=== PATIENT | female | born 1985 | race Caucasian/White ===

== ENCOUNTER 2016-07-13 02:08 | Emergency (ER) | payer OTHER ==
[~2016-07-13] VITALS: Ht 152.4 cm; Wt 48.2 kg
[~2016-07-13 02:08] MED LIST: ALPR0.25 PO; CALC0.2510 PO; CALCTAB7 PO; LEVOIUD PV; MULT-506 PO; OMEP20CA9 PO; SERT1TAB72 PO; SULF800T23 PO; SYN75 PO; TRET1CRE34
[2016-07-13 02:17] VITALS: TEMP 36.7; Ht 152.4 cm; Wt 48.2 kg
[2016-07-13] MEDS ORDERED: XYLOCAINE 1%/SOD BICARB 20 ML VIAL INFIL ONE ×2 (02:35→02:45)
[2016-07-13 03:06] LABS: BASO % 0.2 %; BASO ABS # 0.01 K/uL (0-0.2); COMPLETE YES; HEMATOCRIT 40.7 % (37-47); LYMPH % 45.3 %; LYMPH ABS # 2.17 K/uL (1.2-3.4); MEAN CELL VOLUME 91.9 fL (80-100); MEAN CORPUSCULAR HEMOGLOBIN 31.6 pg (25-34); MEAN CORPUSCULAR HGB CONC 34.4 g/dl (32-36); MONO % 10.6 %; NEUT % 42.9 %; PLATELET COUNT 287 K/uL (130-400); RED BLOOD COUNT 4.43 M/uL (4.2-5.4); WHITE BLOOD COUNT 4.79 K/uL (4.8-10.8)
[2016-07-13] MEDS ORDERED: ASPI81TA28 PO (03:20)
[2016-07-13] MEDS ORDERED: LEVO137T3 PO (03:20)
[2016-07-13 03:25] LABS: ALT/SGPT 22 U/L (12-78); AST/SGOT 15 U/L (15-37); BLOOD UREA NITROGEN 6 mg/dl (7-18); BUN/CREATININE RATIO 7.3 (10-20); CALCIUM 8.2 mg/dl (8.5-10.1); CARBON DIOXIDE 24 mmol/L (21-32); CHLORIDE 112 mmol/L (98-107); CREATININE 0.81 mg/dl (0.60-1.20); GLUCOSE 80 mg/dl (70-99); POTASSIUM 3.9 mmol/L (3.5-5.1); SODIUM 146 mmol/L (136-145)
[2016-07-13 03:30] LABS: URINE APPEARANCE CLOUDY (CLEAR); URINE BILIRUBIN NEG (NEG); URINE COLOR YELLOW; URINE NITRITE NEG (NEG); URINE PH 7.5 (4.5-7.5); UROBILINOGEN NEG (NEG)
[2016-07-13 03:34] LABS: MANUAL MICROSCOPIC REQUIRED? NO; REVIEW REQ? NO
[2016-07-13 03:36] LABS: ALB/GLOB RATIO 1.2 (0.9-2); ALKALINE PHOSPHATASE 43 U/L (45-117)
[2016-07-13 03:39] LABS: PREG INTERNAL NEGATIVE QC NEG CLEAR BACKGROUND; PREG INTERNAL POSITIVE QC POS CONTROL LINE
[2016-07-13 03:45] LABS: BENZODIAZEPINE, URINE NEG (NEG); COCAINE,URINE NEG (NEG); PHENCYCLIDINE, URINE NEG (NEG)
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
[2016-07-13 10:41] VITALS: BP 147/88; PULSE 95; O2SAT 97
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
== END 2016-07-13 10:43 | disposition home or self-care (01) ==
LOC: C.EDB 02:08 → EDBD 02:08 → C.EDA 10:43
DX: S71.111A Laceration without foreign body, right thigh, initial encounter (principal); S81.812A Laceration without foreign body, left lower leg, initial encounter; X78.1XXA Intentional self-harm by knife, initial encounter; E07.9 Disorder of thyroid, unspecified; K21.9 Gastro-esophageal reflux disease without esophagitis; F32.9 Major depressive disorder, single episode, unspecified; Z79.82 Long term (current) use of aspirin; Z79.899 Other long term (current) drug therapy

== ENCOUNTER → 2016-10-18 | Outpatient (CLI) | payer OTHER ==
[~2016-10-18] MED LIST changes: -ALPR0.25 PO; +ASPI81TA28 PO; -CALC0.2510 PO; -CALCTAB7 PO; +LEVO137T3 PO; -LEVOIUD PV; -MULT-506 PO; -OMEP20CA9 PO; -SERT1TAB72 PO; -SULF800T23 PO; -SYN75 PO; -TRET1CRE34
[2016-10-18 14:44] LABS: BASO % 0.2 %; BASO ABS # 0.01 K/uL (0-0.2); COMPLETE YES; EOS % 0.5 %; HEMATOCRIT 36.4 % (37-47); LYMPH % 20.6 %; LYMPH ABS # 1.19 K/uL (1.2-3.4); MEAN CELL VOLUME 91.9 fL (80-100); MEAN CORPUSCULAR HEMOGLOBIN 31.1 pg (25-34); MEAN CORPUSCULAR HGB CONC 33.8 g/dl (32-36); MEAN PLATELET VOLUME 10.5 fL (7.4-10.4); MONO % 8.8 %; NEUT % 69.9 %; PLATELET COUNT 279 K/uL (130-400); RED BLOOD COUNT 3.96 M/uL (4.2-5.4); WHITE BLOOD COUNT 5.79 K/uL (4.8-10.8)
[2016-10-18 15:17] LABS: THYROID STIMULATING HORMONE 1.12 uIu/ml (0.300-4.500)
[2016-10-18 15:41] LABS: URINE APPEARANCE CLOUDY (CLEAR); URINE BILIRUBIN NEG (NEG); URINE COLOR YELLOW; URINE EPITHELIAL CELL AUTO >30 /lpf (0-5); URINE NITRITE NEG (NEG); URINE PH 8.5 (4.5-7.5); URINE SPECIFIC GRAVITY 1.019 (1.000-1.030); UROBILINOGEN NEG (NEG)
[2016-10-18 15:46] LABS: MANUAL MICROSCOPIC REQUIRED? NO; REVIEW REQ? NO
[2016-10-21 01:09] LABS: CHLAMYDIA TRACH RNA*** NOT DETECTED (NOT DETECTED); GC (NEIS GONORRHOEAE)RNA** NOT DETECTED (NOT DETECTED)
== END | disposition home or self-care (01) ==
LOC: C.LAB1850 12:43
PROVIDERS: ATTEND Obstetrics & Gynecology
DX: O09.299 Supervision of pregnancy with other poor reproductive or obstetric history, unspecified trimester (principal); E06.3 Autoimmune thyroiditis; Z3A.00 Weeks of gestation of pregnancy not specified

== ENCOUNTER → 2016-11-15 | Outpatient (CLI) | payer OTHER ==
[2016-11-15 17:58] LABS: THYROID STIMULATING HORMONE 7.47 uIu/ml (0.300-4.500)
== END | disposition home or self-care (01) ==
LOC: C.LAB1850 16:35
PROVIDERS: ATTEND Obstetrics & Gynecology
DX: O09.91 Supervision of high risk pregnancy, unspecified, first trimester (principal)

== ENCOUNTER → 2016-12-11 | Outpatient (CLI) | payer OTHER ==
[2016-12-11 18:31] LABS: THYROID STIMULATING HORMONE 1.64 uIu/ml (0.300-4.500)
[2016-12-13 16:56] LABS: AFP CONCENTRATION 43.9 NG/ML; AFP MULTIPLE OF MEDIAN 1.11; AFPTS GESTATIONAL AGE 16.1 WEEKS; AFPTS INSULIN DEP DIABETIC? NO; AFPTS MATERNAL WT 116 LBS; ALPHA-FETOPROTEIN RACE CAUCASIAN=W; HISTORY OF NTD YES; REPEAT SAMPLE? NO
== END | disposition home or self-care (01) ==
LOC: C.LAB1850 17:00
PROVIDERS: ATTEND Obstetrics & Gynecology
DX: O09.91 Supervision of high risk pregnancy, unspecified, first trimester (principal); Z3A.00 Weeks of gestation of pregnancy not specified

== ENCOUNTER → 2016-12-13 | Outpatient (CLI) | payer OTHER ==
[2016-12-13 17:44] LABS: GTGD 50 Grams
== END | disposition home or self-care (01) ==
LOC: C.LAB1850 16:40
PROVIDERS: ATTEND Obstetrics & Gynecology
DX: Z34.82 Encounter for supervision of other normal pregnancy, second trimester (principal)

== ENCOUNTER → 2017-03-08 | Outpatient (CLI) | payer OTHER ==
[2017-03-08 18:16] LABS: URINE APPEARANCE CLEAR (CLEAR); URINE BILIRUBIN NEG (NEG); URINE COLOR YELLOW; URINE NITRITE NEG (NEG); URINE PH 8.5 (4.5-7.5); URINE SPECIFIC GRAVITY 1.011 (1.000-1.030); UROBILINOGEN NEG (NEG)
[2017-03-08 18:20] LABS: MANUAL MICROSCOPIC REQUIRED? NO; REVIEW REQ? NO
== END | disposition home or self-care (01) ==
LOC: C.LABSPEC 17:26
PROVIDERS: ATTEND Obstetrics & Gynecology
DX: Z34.83 Encounter for supervision of other normal pregnancy, third trimester (principal)

== ENCOUNTER → 2017-04-09 | Outpatient (CLI) | payer OTHER | END | disposition home or self-care (01) | LOC: C.LAB1850 08:40 | PROVIDERS: ATTEND Obstetrics & Gynecology | DX: O28.1 Abnormal biochemical finding on antenatal screening of mother (principal); Z3A.00 Weeks of gestation of pregnancy not specified ==

== ENCOUNTER → 2017-05-07 | Outpatient (CLI) | payer OTHER | END | disposition home or self-care (01) | LOC: C.LABSPEC 16:07 | PROVIDERS: ATTEND Obstetrics & Gynecology | DX: Z34.83 Encounter for supervision of other normal pregnancy, third trimester (principal) ==

== ENCOUNTER → 2017-05-07 | Outpatient (CLI) | payer BC | END | disposition home or self-care (01) | LOC: C.LAB1850 15:09 | PROVIDERS: ATTEND Obstetrics & Gynecology | DX: E06.3 Autoimmune thyroiditis (principal); O99.280 Endocrine, nutritional and metabolic diseases complicating pregnancy, unspecified trimester ==

== ENCOUNTER → 2017-05-10 | Outpatient (CLI) | payer OTHER | END | disposition home or self-care (01) | LOC: C.LAB1850 13:33 | PROVIDERS: ATTEND Internal Medicine | DX: E06.3 Autoimmune thyroiditis (principal) ==

== ENCOUNTER 2017-05-31 02:53 | Inpatient (IN) | payer BC ==
[~2017-05-31] VITALS: Ht 154.9 cm; Wt 60.0 kg
[2017-05-31] MEDS ORDERED: LACTATED RINGER'S 1000ML 1,000 ML IV SCH ×2 (05:09→10:58)
[2017-05-31] MEDS ORDERED: LACTATED RINGER'S 1000ML 1,000 ML IV PRN (05:09)
[2017-05-31] MEDS ORDERED: EpHEDrine SULFATE INJ 50 MG/ML AMP ONE (05:29)
[2017-05-31] MEDS ORDERED: BUPIVACAINE 0.25% 30 ML VIAL ONE (05:29)
[2017-05-31] MEDS ORDERED: FENTANYL 2MCG/ML ROPIV 1.25MG/ML 100ML BAG EPI ONE (05:30)
[2017-05-31] MEDS ORDERED: FENTANYL CITRATE INJ 50 MCG/1 ML 2 ML VIAL ONE (05:31)
[2017-05-31 05:40] VITALS: Ht 154.9 cm; Wt 60.0 kg
[2017-05-31] MEDS ORDERED: ONDANSETRON INJ 2 MG/ML 2 ML VIAL IV STA (05:47)
[2017-05-31] MEDS ORDERED: ONDANSETRON INJ 2 MG/ML 2 ML VIAL ONE (05:48)
[2017-05-31 05:53] LABS: HEMATOCRIT 37.6 % (37-47); HEMOGLOBIN 12.8 g/dL (12.0-16.0); MEAN CELL VOLUME 93.1 fL (80-100); MEAN CORPUSCULAR HEMOGLOBIN 31.7 pg (25-34); MEAN PLATELET VOLUME 10.1 fL (7.4-10.4); PLATELET COUNT 149 K/uL (130-400); RED CELL DISTRIBUTION WIDTH CV 13.2 % (11.5-14.5); RED CELL DISTRIBUTION WIDTH SD 44.9 fL (36.4-46.3); WHITE BLOOD COUNT 8.03 K/uL (4.8-10.8)
[2017-05-31] MEDS ORDERED: BUTORPHANOL TARTRATE 1 MG/ML VIAL ONE (06:04)
[2017-05-31] MEDS ORDERED: BUTORPHANOL TARTRATE 1 MG/ML VIAL IV ONE (06:15)
[2017-05-31] MEDS ORDERED: SYN200 (06:23)
[2017-05-31] MEDS ORDERED: PRENTAB26 PO (06:24)
[2017-05-31] MEDS ORDERED: LACTATED RINGER'S 1000ML 500 ML IV PRN ×2 (06:56→10:05)
[2017-05-31] MEDS ORDERED: NALOXONE HCL INJ 1 MG in SODIUM CHLORIDE 0.9% 1000ML 1,000 ML IV PRN ×2 (06:56→10:05)
[2017-05-31] MEDS ORDERED: ONDANSETRON INJ 2 MG/ML 2 ML VIAL IV PRN ×2 (07:00→10:15)
[2017-05-31] MEDS ORDERED: EpHEDrine SULFATE INJ 50 MG/ML AMP IV PRN ×2 (07:00→10:15)
[2017-05-31] MEDS ORDERED: NALBUPHINE HCL INJ 10 MG/ML AMP IV PRN ×2 (07:00→10:15)
[2017-05-31] MEDS ORDERED: DiphenhydrAMINE HCL 50 MG/ML VIAL IV PRN ×2 (07:00→10:15)
[2017-05-31] MEDS ORDERED: NALOXONE HCL INJ 0.4 MG/1 ML VIAL/CARP IV PRN ×2 (07:00→10:15)
[2017-05-31] MEDS ORDERED: FENTANYL 2MCG/ML ROPIV 1.25MG/ML 100ML BAG EPI PRN ×2 (07:00→10:15)
[2017-05-31] MEDS ORDERED: OXYTOCIN 30 UNITS/500ML NSS IV ONE (10:49)
[2017-05-31] MEDS ORDERED: SUPERCREAM 0.870 % 15GM JAR EXT PRN (11:00)
[2017-05-31] MEDS ORDERED: HYDROCORTISONE ACETATE 25 MG SUPP PR PRN (11:00)
[2017-05-31] MEDS ORDERED: ACETAMINOPHEN 325 MG TAB PO PRN (11:00)
[2017-05-31] MEDS ORDERED: IBUPROFEN 600 MG TAB PO PRN (11:00)
[2017-05-31] MEDS ORDERED: OXYCODONE/ACETAMINOPHEN 5-325 TAB PO PRN (11:00)
[2017-05-31] MEDS ORDERED: LANOLIN OINT EXT PRN (11:00)
[2017-05-31] MEDS ORDERED: OXYTOCIN 30 UNITS/500ML NSS IV PRN (11:00)
[2017-05-31] MEDS ORDERED: BENZOCAINE 20% AER SPR 82.5 GM CAN EXT PRN (11:00)
[2017-05-31] MEDS ORDERED: DIPHTHERIA/TETANUS/PERTUSSIS 0.5 ML SYR/VIAL IM. ONE (11:00)
--- NOTE | 2017-05-31 12:42 | Anesthesia Procedure Note ---
Anesthesia Epidural Removal Nt Date & Time May 31, 2017 at 12:42 Vital Signs Pain Intensity: 1.0 Notes Mental Status: alert / awake / arousable, participated in evaluation Nausea / Vomiting: adequately controlled Pain: adequately controlled Airway Patency, RR, SpO2: stable & adequate BP & HR: stable & adequate Hydration State: stable & adequate Neuraxial Anesthesia: was administered, sensory block is resolving Anesthetic Complications: no major complications apparent, pt satisfied with anesthetic care Epidural: removed without complications, with tip intact
[2017-05-31 15:30] VITALS: BP 130/88; PULSE 79; TEMP 36.5
[2017-05-31 19:00] VITALS: BP 109/70; PULSE 75; TEMP 36.6
[2017-05-31] MEDS ORDERED: DOCUSATE SODIUM 100 MG CAP PO SCH (20:00)
--- NOTE | 2017-05-31 20:54 | DELIVERY SUMMARY ---
DATE OF OPERATION: 05/31/2017 SURGEON: Mary Rey MD BOILER ERECTOR: None. ESTIMATED BLOOD LOSS: 300 mL. SURGERY: Spontaneous vaginal delivery. COMPLICATIONS: None. DISPOSITION: Stable to labor and delivery. DESCRIPTION: Marla was admitted and initially managed by my partner Dr. Rodriguez. I took over her care at the end-stage of her labor. She was noted to be 7 to 8 cm with thick meconium at the time I assumed her care. She was progressing with spontaneous labor and no augmentation. She became completely dilated with an urge to push. The nurse had her do one test push, which brought the head nearly to , therefore, they stopped pushing until I was able to get to the bedside from down the hallway. I quickly prepped down for delivery and then through the next several pushing attempts, patient delivered the head of the in an occiput anterior position, followed by both shoulders and the remainder of the body with no difficulty whatsoever. The cord was doubly clamped after a delay per patient's wishes and then cut by the father of the baby. Cord blood was collected and the placenta delivered spontaneously and was intact for the 3-vessel cord. There was also noted to be a succenturiate lobe on the placenta. There were no lacerations requiring repair on the cervix, vagina or perineum, and lochia was minimal at the time of this dictation. I attest to the content of the Intraoperative Record and any orders documented therein. Any exception s are noted below.
[2017-06-01 00:30] VITALS: BP 110/73; PULSE 70; TEMP 36.6
[2017-06-01 04:00] VITALS: BP 112/70; PULSE 70; TEMP 36.6
--- NOTE | 2017-06-01 05:54 | Discharge Instructions ---
Discharge Instructions Date of Service Jun 01, 2017. Admission Reason for Admission: Normal Labor Discharge Discharge Diagnosis / Problem: vaginal delivery Discharge Goals Goal(s): Routine recovery after delivery Medications Continue Dispensed Medications: supercream, dermaplast, tucks, lansinoh Activity Recommendations Activity Limitations: per Instructions/Follow-up section . Instructions / Follow-Up Instructions / Follow-Up ACTIVITY RECOMMENDATIONS: * Gradual return to full activity over the next 2-3 weeks. * No lifting - nothing heavier than baby over the next 2-3 weeks. * Do not engage in vigorous exercise, sexual activity or sports until cleared by your physician. * Do not drive or operate any motorized equipment until cleared by your physician. * You may shower/bathe daily. MEDICATIONS: For discomfort or pain, you may use Acetaminophen (Tylenol), Ibuprofen (Advil), or Naproxen (Aleve) following the package directions. For constipation you may use Colace following the package directions. BREAST CARE: If you are not breast feeding: * Wear a supportive bra 24 hours a day for one to two weeks. * Avoid stimulating your breasts and nipples as much as possible during the first few weeks after delivery. * When taking a shower, have the warm water hit your back, not breasts. * When your breasts feel full, apply ice packs. Usually three to four times a day helps ease the discomfort. * Take a mild pain medication (Tylenol / Motrin) when you are uncomfortable. If breast feeding: * Use breast milk to lubricate nipples. Lansinoh cream may be used for sore nipples. You do not need to remove cream prior to breast feeding. If using a different brand of cream, check the label for directions regarding removal of cream prior to nursing. * Wear a supportive bra. * If having problems with breasts or breast feeding, call a medical cost consultant or your health care provider. EPISIOTOMY CARE: After delivery, if you have an episiotomy (stitches), the following steps will ease discomfort and aid healing. * For the first 24 hours after delivery, place ice packs next to your episiotomy to help reduce swelling. * After the first 24 hour-period, sitz baths, either portable or in the tub, are suggested. A shower with a shower arm sprayed over the episiotomy may be comforting. * Yumiko care should be done after each voiding and bowel movement. Squirt warm water from a plastic bottle over the perineum (region of the body between the anus and urinary opening) and pat dry. * Use Dermoplast to ease discomfort. Shake container. [place] directly over the episiotomy. Place a Tucks on a clean sanitary pad next to your episiotomy. SPECIAL CARE INSTRUCTIONS: When you are discharged from the hospital, it is important for you to follow the instructions listed below: * During the first week at home, you should be able to care for yourself and your baby. In addition, the usual light household activities are encouraged. * Limit your activities to the way you feel. Do not try to clean the house or move furniture. Be sensible. * If you actively engage in sports and have done so up until the time of your delivery, you may resume these activities as soon as you feel able. This may take up to one month or even longer. Use good judgment. * Continue to take your vitamins for at least six weeks after the of your baby. * Your diet need not be limited unless you were on a special diet before your delivery. Breast-feeding mothers need around 2500 calories per day and at least 64-80 ounces of fluid per day (8 to 10 glasses). * You should eat foods from the four major food groups. Crash diets or fad diets are to be avoided. Eating lean meats, fresh fruits and vegetables, low-fat dairy products, high fiber foods and a regular exercise program, will help you get back to your pre- weight without putting your health at risk. * Constipation is sometimes a problem after delivery. Take a mild laxative as needed. If breast feeding, Milk of Magnesia is acceptable to use. You may use a suppository or Fleets enema if no episiotomy. * A daily shower or tub bath is suggested. Be sure to thoroughly and gently dry the perineum. * A bloody vaginal discharge will usually continue until around four weeks post . A small amount of bleeding may continue for as long as six weeks. Vaginal discharge changes from the bright red bleeding after delivery to pink then brownish and finally yellowish-pink before becoming white and disappearing. * Bleeding may increase with activity. Your first period may come in 4-8 weeks. If you are breast feeding, your period may be delayed even longer. * Tyndall (sex) can begin whenever both you and your partner feel comfortable and do not have any form of genital infection. It is recommended that you wait at least six weeks for internal and external healing to occur. If you have questions, please talk to your health care practitioner. A condom should be used to prevent infection and . * Foreplay, gentle intercourse and lubrication is very important the first several times to prevent pain. A water-based lubricant such as K-Y jelly or Astroglide may be used. * If you have RH negative blood and your baby is RH positive, you will receive RHOGAM by injection prior to discharge. The nurse will give you a card to keep with you that has the date and place that you received RHOGAM after delivery. * During your care, you had a Rubella screen done to check for the presence of rubella antibodies in your blood. If your test was negative, you will receive a Rubella vaccine prior to discharge. This vaccine may cause a fever, soreness at the injection site and flu-like symptoms. If these symptoms persist, notify your health care practitioner. is not advised for one month after a Rubella vaccine. * Verbalizes understanding of car seat law as reviewed with patient nursing. * Car Seat hand-out given and reviewed with patient by nursing. * Shaken baby information reviewed with patient by nursing. Call you doctor if: * Heavy bleeding (saturating several pads an hour) or passing clots the size of your fist. * A fever >101 degrees F (38.3 degrees C) on two occasions four hours apart and /or chills. * Unusual pain in the pelvic or vaginal areas. * "Baby Blues" lasting longer than two weeks. If you have any questions or concerns, call your health care practitioner at . FOLLOW UP VISIT: * Please call the office at to schedule a 6 week examination. It is important you keep this appointment. It is important for you to make arrangements for either yearly or twice yearly check-ups thereafter. Current Hospital Diet Patient's current hospital diet: Regular OB Diet Discharge Diet Recommended Diet: Regular OB Diet Pending Studies Studies pending at discharge: no Medical Emergencies . Who to Call and When: Medical Emergencies: If at any time you feel your situation is an emergency, please call 911 immediately. . Non-Emergent Contact Non-Emergency issues call your: General Repair Mechanic . . "Provider Documentation" section prepared by Rigo Sanderson. . VTE Core Measure Inpt VTE Proph given/why not?: Treatment not indicated
--- NOTE | 2017-06-01 06:02 | OB/GYN Progress Note ---
TRAFFIC CONTROLLER CABLE Progress Note Date of Service Jun 01, 2017. Subjective conversation w/ patient, physical exam, chart review, lab review, review of studies Ambulation: ambulating normally Voiding: no voiding problems Passing Gas: Yes Diet Tolerance: Regular Diet Lochia: Small Feeding Type: Breast Feeding Pain: controlled with motrin Review of Systems Constitutional: No fever Respiratory: No cough, No shortness of breath Cardiac: No chest pain Abdomen: No pain, No nausea, No vomiting Female : No dysuria Objective Vital Signs Date Time Temp Pulse Resp B/P (MAP) Pulse Ox O2 Delivery O2 Flow Rate FiO2 06/01/17 04:00 36.6 70 18 112/70 (84) Room Air 06/01/17 00:30 Room Air 06/01/17 00:30 36.6 70 18 110/73 (85) Room Air 05/31/17 19:00 36.6 75 20 109/70 (83) Room Air 05/31/17 15:30 Room Air 05/31/17 15:30 36.5 79 20 130/88 (102) Room Air Physical Exam General Appearance: WELL-APPEARING, WD/WN, NO APPARENT DISTRESS Respiratory/Chest: lungs clear, normal breath sounds Cardiovascular: regular rate, rhythm Abdomen: non tender, soft Fundus: Firm, Relation to Umbilicus (two digits below ) Extremities: normal inspection, no pedal edema, no calf tenderness Laboratory Results Last 24 Hours Test 06/01/17 04:44 Assessment and Plan Post- Day Number: 1 Continue Routine Care: 32 F now 3 PPD1 delivered vaginally at 40-4 wk. GBS-/A+/RI Reviewed vitals, stable/WNL. Hgb was 12.8 on admission, pending this morning. Plan; 1. Recovery from vaginal delivery; continue pp care; encourage ambulation, support , monitor lochia 2. Discussed dc instructions with patient Resident Physician Supervision Note: I interviewed and examined the patient. Discussed with Dr. Sanderson and agree with findings and plan as documented in the note. Any exceptions or clarifications are listed here: [None] Documented By: Mary Rey
[2017-06-01] MEDS ORDERED: LEVOTHYROXINE 200 MCG TAB PO SCH (07:30)
[2017-06-01 07:35] VITALS: BP 119/84; PULSE 67; TEMP 36.5
[2017-06-01] MEDS ORDERED: PRENATAL VITAMIN TAB PO SCH (08:00)
[2017-06-01 08:40] LABS: HEMATOCRIT 36.3 % (37-47); HEMOGLOBIN 12.6 g/dL (12.0-16.0)
[2017-06-01 12:30] VITALS: BP_DIAS 84; PULSE 67; TEMP 36.5
== END 2017-06-01 13:05 | disposition home or self-care (01) | DRG 775 ==
LOC: EDSTATUS 02:53 → C.OPB 02:53 → C.LD 02:53 → C.OPB 05:11 → C.OBG 15:32
PROVIDERS: ADMIT Obstetrics & Gynecology; ATTEND Obstetrics & Gynecology
PROC: 10E0XZZ Delivery of Products of Conception, External Approach (ICD-10-PCS; principal; 2017-05-31)
DX: O99.284 Endocrine, nutritional and metabolic diseases complicating childbirth (principal); E06.3 Autoimmune thyroiditis; Z3A.40 40 weeks gestation of pregnancy; Z37.0 Single live birth

== ENCOUNTER 2017-06-28 19:08 | Emergency (ER) | payer BC, OTHER ==
[~2017-06-28] VITALS: Ht 162.6 cm; Wt 52.7 kg
[~2017-06-28 19:08] MED LIST changes: -ASPI81TA28 PO; -LEVO137T3 PO; +PRENTAB26 PO; +SYN200 PO
[2017-06-28 19:13] VITALS: Ht 162.6 cm; Wt 52.7 kg
[2017-06-28] MEDS ORDERED: ACETAMINOPHEN 500 MG TAB PO STA (19:29)
[2017-06-28] MEDS ORDERED: ONDANSETRON INJ 2 MG/ML 2 ML VIAL IV STA (19:29)
[2017-06-28] MEDS ORDERED: SODIUM CHLORIDE 0.9% 1000ML 2,000 ML IV STA (19:29)
--- NOTE | 2017-06-28 19:43 | EMERGENCY ROOM VISIT NOTE ---
History Report prepared by Curtis: Genaro Be Under the Supervision of: Dr. Maxi Ledezma M.D. First contact with patient: 19:26 Chief Complaint: FEVER Stated Complaint: FEVER, PAIN History of Present Illness The patient is a 32 year old female who presents to the Emergency Room with complaints of a persistent fever for the past 24 hours. The patient states that she has had a fever up to 102.6, chills, headache, light headedness, nausea, and has body aches. She states that her nausea is worse with standing up. The patient states that she has not been eating very well today, though she has been drinking. She denies any abdominal pain, burning with urination, diarrhea, cough, and congestion. The patient had a baby a month ago, and she has a history of hypothyroidism. She reports that she took ibuprofen three hours ago, and she has not taken any Tylenol. The patient notes that no one else is sick around he at home. She denies any history of hypertension. The patient additionally notes that she is having some redness and soreness around her right breast which started today, and it is only present on her right breast. Source of History: patient Onset: 24 hours ago Position: other (global) Symptom Intensity: 102.6 Quality: other (fever) Timing: other (persistent) Associated Symptoms: + chills, + headache, + nausea, No cough, No abdominal pain, No diarrhea Note: Associated symptoms: Light headed and body aches. Review of Systems See HPI for pertinent positives and negatives. A total of ten systems were reviewed and were otherwise negative. Past Medical & Surgical Medical Problems: (1) 40 weeks gestation of (2) Normal labor Social History Smoking Status: Never Smoker Alcohol Use: occasionally Drug Use: none Marital Status: in relationship Housing Status: lives with family Occupation Status: employed Current/Historical Medications Scheduled Cephalexin Monohydrate (Keflex), 500 MG PO QID Levothyroxine Sodium (Synthroid), 200 MG PO DAILY Multivit/Min/Iron/Fol Ac/Pren ( Vitamin), 1 TAB PO DAILY Scheduled PRN Ibuprofen (Advil), 200 MG PO TID PRN for Pain Allergies Coded Allergies: No Known Allergies (Unverified , 06/28/17) Physical Exam Vital Signs Date Time Temp Pulse Resp B/P (MAP) Pulse Ox O2 Delivery O2 Flow Rate FiO2 06/28/17 22:23 104 16 103/62 99 Room Air 06/28/17 21:11 37.0 114 16 101/59 97 Room Air 06/28/17 19:13 36.7 136 18 111/72 97 Room Air Physical Exam GENERAL: Fatigued appearing, no distress. HENT: Normocephalic, atraumatic. Dry mucous membranes. Oropharynx unremarkable. EYES: Normal conjunctiva. Sclera non-icteric. NECK: Supple. No nuchal rigidity. FROM. No JVD. RESPIRATORY: Clear to auscultation. CARDIAC: Regular rate, normal rhythm. Extremities warm and well perfused. Pulses equal. ABDOMEN: Soft, non-distended. No tenderness to palpation. No rebound or guarding. No masses. RECTAL: Deferred. MUSCULOSKELETAL: Mild erythema and warmth to superior portion of the right breast with mild tenderness. The back is symmetrical on inspection without obvious abnormality. There is no CVA tenderness to palpation. No joint edema. LOWER EXTREMITIES: Calves are equal size bilaterally and non-tender. No edema. No discoloration. NEURO: Normal sensorium. No sensory or motor deficits noted. SKIN: No rash or jaundice noted. Medical Decision & Procedures Laboratory Results 06/28/17 19:50 Red Blood Count 4.32, Mean Corpuscular Volume 90.0, Mean Corpuscular Hemoglobin 32.2, Mean Corpuscular Hemoglobin Concent 35.7, Mean Platelet Volume 10.0, Neutrophils (%) (Auto) 90.8, Lymphocytes (%) (Auto) 5.9, Monocytes (%) (Auto) 2.9, Eosinophils (%) (Auto) 0.0, Basophils (%) (Auto) 0.1, Neutrophils # (Auto) 15.10, Lymphocytes # (Auto) 0.98, Monocytes # (Auto) 0.49, Eosinophils # (Auto) 0.00, Basophils # (Auto) 0.01 06/28/17 19:50 Test 06/28/17 19:50 06/28/17 19:56 White Blood Count 16.63 K/uL (4.8-10.8) Red Blood Count 4.32 M/uL (4.2-5.4) Hemoglobin 13.9 g/dL (12.0-16.0) Hematocrit 38.9 % (37-47) Mean Corpuscular Volume 90.0 fL (80-100) Mean Corpuscular Hemoglobin 32.2 pg (25-34) Mean Corpuscular Hemoglobin Concent 35.7 g/dl (32-36) Platelet Count 154 K/uL (130-400) Mean Platelet Volume 10.0 fL (7.4-10.4) Neutrophils (%) (Auto) 90.8 % Lymphocytes (%) (Auto) 5.9 % Monocytes (%) (Auto) 2.9 % Eosinophils (%) (Auto) 0.0 % Basophils (%) (Auto) 0.1 % Neutrophils # (Auto) 15.10 K/uL (1.4-6.5) Lymphocytes # (Auto) 0.98 K/uL (1.2-3.4) Monocytes # (Auto) 0.49 K/uL (0.11-0.59) Eosinophils # (Auto) 0.00 K/uL (0-0.5) Basophils # (Auto) 0.01 K/uL (0-0.2) RDW Standard Deviation 38.5 fL (36.4-46.3) RDW Coefficient of Variation 11.7 % (11.5-14.5) Immature Granulocyte % (Auto) 0.3 % Immature Granulocyte # (Auto) 0.05 K/uL (0.00-0.02) Toxic Vacuolation OCCASIONAL Dohle Bodies OCCASIONAL Red Blood Cell Morphology Unremarkable Anion Gap 10.0 mmol/L (3-11) Est Creatinine Clear Calc Drug Dose 73.6 ml/min Estimated GFR () 95.6 Estimated GFR (Non- 82.5 BUN/Creatinine Ratio 13.5 (10-20) Calcium Level 9.0 mg/dl (8.5-10.1) Total Bilirubin 0.6 mg/dl (0.2-1) Direct Bilirubin 0.1 mg/dl (0-0.2) Aspartate Amino Transf (AST/SGOT) 18 U/L (15-37) Alanine Aminotransferase (ALT/SGPT) 33 U/L (12-78) Alkaline Phosphatase 64 U/L (45-117) Total Protein 8.2 gm/dl (6.4-8.2) Albumin 3.8 gm/dl (3.4-5.0) Lipase 208 U/L (73-393) Urine Color YELLOW Urine Appearance CLOUDY (CLEAR) Urine pH 5.5 (4.5-7.5) Urine Specific [place] 1.032 (1.000-1.030) Urine Protein 2+ (NEG) Urine Glucose (UA) NEG (NEG) Urine Ketones 4+ (NEG) Urine Occult Blood 3+ (NEG) Urine Nitrite NEG (NEG) Urine Bilirubin NEG (NEG) Urine Urobilinogen NEG (NEG) Urine Leukocyte Esterase SMALL (NEG) Urine WBC (Auto) >30 /hpf (0-5) Urine RBC (Auto) 10-30 /hpf (0-4) Urine Hyaline Casts (Auto) 1-5 /lpf (0-5) Urine Epithelial Cells (Auto) >30 /lpf (0-5) Urine Bacteria (Auto) NEG (NEG) Urine Renal Epithelial Cells /lpf (0-5) Urine Pathogenic Casts /lpf (0) Urine Mucus PRESENT (NONE PRSENT) Influenza Type A Antigen Neg for Influ A (NEG) Influenza Type B Antigen Neg for Influ B (NEG) Date/Time Source Procedure Growth Status 06/28/17 19:56 Urine , Clean Catch Urine Culture - Final THREE TYPES OF ORGANSIMS PRESENT, ALL... Complete Laboratory results reviewed by me Medications Administered Medications (Trade) Dose Ordered Sig/Charlie Route Start Time Stop Time Status Last Admin Dose Admin Sodium Chloride 2,000 ml @ 999 mls/hr Q2H1M STAT IV 06/28/17 19:29 06/28/17 21:29 DC 06/28/17 19:50 999 MLS/HR Ondansetron HCl (Zofran Inj) 4 mg NOW STAT IV 06/28/17 19:29 06/28/17 19:37 DC 06/28/17 19:50 4 MG Acetaminophen (Tylenol Tab) 1,000 mg NOW STAT PO 06/28/17 19:29 06/28/17 19:37 DC 06/28/17 19:50 1,000 MG Cephalexin Monohydrate (Keflex Cap) 500 mg NOW ONCE PO 06/28/17 21:45 06/28/17 21:46 DC 06/28/17 21:54 500 MG ED Course 1925: The patient was evaluated in room B2. A complete history and physical exam was performed. 2149: I reevaluated the patient. Discussed results and discharge instructions: she verbalized understanding and agreement. The patient is ready for discharge. Medical Decision I reviewed the patient's past medical history, medications, and the nursing notes as described above. Differential diagnoses include: mastitis, viral syndrome, influenza, dehydration , electrolyte abnormality. The patient is a 32-year-old woman who is 4 weeks after a normal and delivery presents emergency Department with feverishness, chills, body aches, nausea per hpi. On arrival the patient is no acute distress, afebrile with heart rate 130s but vital signs otherwise stable. Appears clinically dry. Exam the patient has mild erythema and warmth to the superior portion of the right breast. No induration or fluctuance to suggest abscess. WBC 16. UA is dirty however given the patient's symptoms we'll treat with Keflex for UTI which will also cover the patient's mastitis. Flu negative. Patient feeling improved after IV fluids. Heart rate improved to 100s. Findings and plan for follow-up reviewed with patient. Patient agreeable and d/c 'd per discharge instructions. Medication Reconcilliation Current Medication List: was personally reviewed by me Blood Pressure Screening Patient's blood pressure: Normal blood pressure Impression Primary Impression: Urinary tract infection Additional Impression: Mastitis Scribe Attestation The scribe's documentation has been prepared under my direction and personally reviewed by me in its entirety. I confirm that the note above accurately reflects all work, treatment, procedures, and medical decision making performed by me. Departure Information Dispostion Home / Self-Care Prescriptions Cephalexin Monohydrate (Keflex) 500 Mg Cap 500 MG PO QID for 7 Days, #28 CAP Prov: Maxi Ledezma M.D. 06/28/17 Referrals Pedrito Anderson M.D. (PCP) Forms HOME CARE DOCUMENTATION FORM, IMPORTANT VISIT INFORMATION Patient Instructions ED Infec Skin Cellulitis, ED UTI Cystitis Female, My [facility] Additional Instructions Please follow up with your primary care physician in the next 1-3 days for re- evaluation. Your symptoms are likely due to mastitis and a urinary tract infection. Otherwise, your exam and lab results did not show signs of an emergent condition at this time. Acetaminophen or ibuprofen for pain and fevers as needed. Keflex as directed for UTI and mastitis. Drink plenty of fluids to ensure hydration. For mastitis to reduce pain and swelling (Acetaminophen or ibuprofen and cold compresses) and complete emptying of the breast (via ongoing , pumping, and/or hand expression). Return to the emergency department for worsening symptoms as described in the accompanying instructions. Problem Qualifiers
[2017-06-28 20:00] LABS: HEMATOCRIT 38.9 % (37-47); HEMOGLOBIN 13.9 g/dL (12.0-16.0); MEAN CORPUSCULAR HEMOGLOBIN 32.2 pg (25-34); MEAN CORPUSCULAR HGB CONC 35.7 g/dl (32-36); PLATELET COUNT 154 K/uL (130-400); RED CELL DISTRIBUTION WIDTH CV 11.7 % (11.5-14.5); RED CELL DISTRIBUTION WIDTH SD 38.5 fL (36.4-46.3); WHITE BLOOD COUNT 16.63 K/uL (4.8-10.8)
[2017-06-28 20:19] LABS: ALBUMIN 3.8 gm/dl (3.4-5.0); CREATININE 0.93 mg/dl (0.60-1.20); POTASSIUM 3.7 mmol/L (3.5-5.1)
[2017-06-28] MEDS ORDERED: IBUP-1050 PO (20:19)
[2017-06-28 20:22] LABS: TOTAL PROTEIN 8.2 gm/dl (6.4-8.2)
[2017-06-28 20:37] LABS: BASO % 0.1 %; BASO ABS # 0.01 K/uL (0-0.2); IG# 0.05 K/uL (0.00-0.02); LYMPH % 5.9 %; LYMPH ABS # 0.98 K/uL (1.2-3.4); MONO % 2.9 %; MONO ABS # 0.49 K/uL (0.11-0.59); NEUT % 90.8 %
[2017-06-28 20:45] LABS: INFLUENZA B ANTIGEN Neg for Influ B (NEG)
[2017-06-28 21:11] VITALS: TEMP 37
[2017-06-28] MEDS ORDERED: SODIUM CHLORIDE 0.9% 1000ML 1,000 ML IV STA (21:37)
[2017-06-28] MEDS ORDERED: CEPHALEXIN MONOHYDRATE 250 MG CAP PO ONE (21:45)
[2017-06-28] MEDS ORDERED: CEPH500C PO (22:11)
[2017-06-28 22:23] VITALS: BP 103/62; PULSE 104; O2SAT 99
== END 2017-06-28 22:25 | disposition home or self-care (01) ==
LOC: C.EDB 19:09
DX: O86.20 Urinary tract infection following delivery, unspecified (principal); O99.285 Endocrine, nutritional and metabolic diseases complicating the puerperium; O91.22 Nonpurulent mastitis associated with the puerperium; E03.9 Hypothyroidism, unspecified

== ENCOUNTER 2018-12-31 23:13 | Inpatient (IN) ==
[2018-12-31] MEDS ORDERED: LACTATED RINGER'S 1,000 ML IV PRN (23:26)
[2018-12-31 23:57] LABS: Hematocrit (blood only) 32.8 % (37-47); Mean Corpuscular Volume 87.5 fL (80-100); Mean Platelet Volume 10.6 fL (7.4-10.4); Platelet Count 181 K/uL (130-400); RDW Coefficient of Variation 13.1 % (11.5-14.5); RDW Standard Deviation 42.4 fL (36.4-46.3); Red Blood Count 3.75 M/uL (4.2-5.4); White Blood Count 7.21 K/uL (4.8-10.8)
[2018-12-31 23:58] LABS: Mean Corpuscular Hgb Conc 33.5 g/dL (32-36)
[2019-01-01] MEDS: OXYTOCIN 30 UNITS/500 ML BAG IV PRN ×2 (00:04→01:08)
[2019-01-01] MEDS ORDERED: fentaNYL citrate 100 MCG/2 ML VIAL ONE (00:10)
--- NOTE | 2019-01-01 00:29 | Delivery Summary ---
Vaginal Delivery Summary Date of Service January 01, 2019 Vaginal Delivery Summary DIAGNOSES: 1. Bloom intrauterine at 40wk gestation. 2. Spontaneous onset of labor. 3. Group B Streptococcus Neg. 4. Precipitous labor 5. Limited attendance of care appointments 6. Meconium-stained fluid. PROCEDURE: Spontaneous vaginal delivery without laceration. SURGEON: Mary Rey MD. HEALTH EDUCATION ASSISTANT: None. ESTIMATED BLOOD LOSS: 250 mL. COMPLICATIONS: None. PLACENTA: Spontaneous and intact with a 3-vessel cord. DISPOSITION: Stable to labor and delivery. DESCRIPTION: Marla was admitted with SROM for meconium stained fluid and onset of painful contractions. She was found to be 5cm on arrival, and I was advised of her request for an epidural. The patient's labor progressed very rapidly; prior to epidural being obtained, the 's head was found to be in OA position by the nurses, and I was called urgently to the delivery room. The infant's head was allowed to deliver with contraction force and no further active pushing, with the perineum protected during this time by the nurses while I gloved and gowned. The shoulders delivered easily with a maternal pushing effort. There was no nuchal cord. The shoulders and body delivered without any difficulty, and the was placed on the maternal abdomen. It was vigorous and moving all extremities, and making respiratory efforts. The cord was doubly clamped by the MD and then cut. The placenta delivered spontaneously and was noted to be intact and with a 3VC. The cervix, vagina and perineum were examined and were found to be without defect requiring repair. The fundus was firm and lochia minimal immediately after delivery.
[2019-01-01] MEDS ORDERED: ACETAMINOPHEN 325 MG TAB PO PRN (00:38)
[2019-01-01] MEDS ORDERED: IBUPROFEN 600 MG TAB PO PRN (00:38)
[2019-01-01] MEDS ORDERED: HYDROCORTISONE ACETATE 25 MG SUPP PR PRN (00:38)
[2019-01-01] MEDS ORDERED: SUPERCREAM 0.870% 15 GM JAR EXT PRN (00:38)
[2019-01-01] MEDS ORDERED: DIPHTHERIA/TETANUS/PERTUSSIS 0.5 ML SYR/VIAL IM ONE (00:38)
[2019-01-01] MEDS ORDERED: BENZOCAINE 20% AER SPR 82.5 GM CAN EXT PRN (00:38)
[2019-01-01] MEDS ORDERED: OXYCODONE/ACETAMINOPHEN 5mg/325mg TAB PO PRN (00:38)
[2019-01-01] MEDS ORDERED: IBUPROFEN 600 MG TAB PO ONE (01:01)
[2019-01-01] MEDS ORDERED: OXYTOCIN 30 UNITS/500ML NSS ONE (01:02)
[2019-01-01] MEDS: LEVOTHYROXINE SODIUM 175 MCG TABLET PO SCH (06:18)
[2019-01-01] MEDS ORDERED: fentaNYL citrate 100 MCG/2 ML VIAL IV STA (06:20)
--- NOTE | 2019-01-01 06:23 | Obstetrical Progress Note ---
Date of Service <Marilynn Gotti MD - Last Filed: 01/01/19 06:24> January 01, 2019 Assessment & Plan <Marilynn Gotti MD - Last Filed: 01/01/19 06:24> (1) Status post vaginal delivery: Marla is a 33 yo on PPD 1 on at 40 weeks gestation. - GBS -, Blood Type A+ , Rubella immune -Vitals reviewed and WNL; BP 134/86, will continue to monitor -patient is doing clinically well encourage ambulation, progress diet as tolerated, provide analgesia as needed, monitor lochia anticipated d/c 01/02 Subjective <Marilynn Gotti MD - Last Filed: 01/01/19 06:24> Ambulation: ambulating normally Voiding: no voiding problems Passing Gas:: No Diet Tolerance:: regular diet (only had one bite of sandwich since delivery) Lochia:: Moderate Feeding Type:: breast feeding Current Pain Level(1-10): 0 examined at bedside Physical Exam <Marilynn Gotti MD - Last Filed: 01/01/19 06:24> General Appearance: Alert, oriented. No acute distress. Cardiac: Regular rate and rhythm, S1 and S2 appreciated. No murmurs/rubs/gallops. Respiratory: Clear to auscultation anterior and posteriorly, no wheezes/rales/rhonchi/crackles. No accessory muscle use. Symmetrical chest rise. Abdomen: Soft, nontender, nondistended. Normoactive bowel sounds throughout. Uterus: Uterine fundus firm, palpable 2 cm below umbilicus. Lower Extremities: No lower extremity edema. No calf pain on compression. Results & Data <Marilynn Gotti MD - Last Filed: 01/01/19 06:24> Vital Signs (Past 12 Hours) Vital Signs Temp Pulse Resp BP Pulse Ox 01/01/19 02:18 57 L 18 134/86 01/01/19 02:03 63 136/82 01/01/19 01:48 71 18 135/81 01/01/19 01:33 63 143/82 H 01/01/19 01:18 70 18 145/90 H 01/01/19 01:03 64 18 138/81 01/01/19 00:48 57 L 18 143/88 H 01/01/19 00:33 74 18 149/86 H 01/01/19 00:17 81 18 142/94 H 01/01/19 00:05 66 79 L 01/01/19 00:02 64 94 01/01/19 00:00 67 97 12/31/18 23:30 108 H 18 126/96 12/31/18 23:21 36.9 C 18 12/31/18 23:20 108 H 126/96 <Mary Rey MD - Last Filed: 01/01/19 07:44> Co-Signing Physician Notes I have reviewed the resident's note and examined the patient myself, and agree with the note above. Resident Activity Tracking <Marilynn Gotti MD - Last Filed: 01/01/19 06:24> Resident Involvement: Resident Care Provided Care Provided: Adult Hospital Medicine
[2019-01-01] MEDS: DOCUSATE SODIUM 100 MG CAP PO SCH ×2 (08:25→21:34)
[2019-01-01] MEDS: PRENATAL VITAMIN 1 TAB PO SCH (08:25)
[2019-01-01 09:35] LABS: Hematocrit (blood only) 28.5 % (37-47); Hemoglobin 9.4 g/dL (12.0-16.0); Mean Platelet Volume 10.5 fL (7.4-10.4); Platelet Count 153 K/uL (130-400); RDW Coefficient of Variation 13.2 % (11.5-14.5); RDW Standard Deviation 42.5 fL (36.4-46.3); Red Blood Count 3.24 M/uL (4.2-5.4); White Blood Count 8.45 K/uL (4.8-10.8)
--- NOTE | 2019-01-02 06:09 | Obstetrical Progress Note ---
Date of Service <Marilynn Gotti MD - Last Filed: 01/02/19 07:22> January 02, 2019 Assessment & Plan <Marilynn Gotti MD - Last Filed: 01/02/19 07:22> (1) Status post vaginal delivery: Marla is a 33 yo on PPD 2 of at 40 weeks gestation. - GBS -, Blood Type A+ , Rubella immune -Vitals reviewed and WNL Hemoglobin reviewed: 11.0 on admission, down to 9.4 (patient asymptomatic) -patient is doing clinically well discharge instructions reviewed. ready for d/c Schedule follow up with Dr. Rey in 6 weeks Subjective <Marilynn Gotti MD - Last Filed: 01/02/19 07:22> Ambulation: ambulating normally Voiding: no voiding problems Passing Gas:: Yes Diet Tolerance:: regular diet Lochia:: Moderate Feeding Type:: breast feeding Current Pain Level(1-10): 0 examined at bedside Physical Exam <Marilynn Gotti MD - Last Filed: 01/02/19 07:22> General Appearance: Alert, oriented. No acute distress. Cardiac: Regular rate and rhythm, S1 and S2 appreciated. No murmurs/rubs/gallops. Respiratory: Clear to auscultation anterior and posteriorly, no wheezes/rales/rhonchi/crackles. No accessory muscle use. Symmetrical chest rise. Abdomen: Soft, nontender, nondistended. Normoactive bowel sounds throughout. Uterus: Uterine fundus firm, palpable 2 cm below umbilicus. Lower Extremities: No lower extremity edema. No calf pain on compression. Results & Data <Marilynn Gotti MD - Last Filed: 01/02/19 07:22> Vital Signs (Past 12 Hours) Vital Signs Temp Pulse Resp BP Pulse Ox 01/01/19 23:05 35.6 C L 81 20 123/85 98 01/01/19 19:55 36.7 C 99 H 20 136/79 <Rolanda Rodriguez MD, FACOG - Last Filed: 01/02/19 07:25> Co-Signing Physician Notes Resident Physician Supervision Note: I interviewed and examined the patient. Discussed with Dr. Gotti and agree with findings and plan as documented in the note. Any exceptions or clarifications are listed here: Doing well. Plan d/c. Instructions given. Documented By: Rolanda Rodriguez MD, FACOG Resident Activity Tracking <Marilynn Gotti MD - Last Filed: 01/02/19 07:22> Resident Involvement: Resident Care Provided Care Provided: OB Delivery
[2019-01-02] MEDS: LEVOTHYROXINE SODIUM 175 MCG TABLET PO SCH (07:19)
[2019-01-02] MEDS: PRENATAL VITAMIN 1 TAB PO SCH (08:37)
[2019-01-02] MEDS: DOCUSATE SODIUM 100 MG CAP PO SCH (08:37)
== END 2019-01-02 12:15 | disposition home or self-care (01) | DRG 807 ==
LOC: OPB 23:13 → 4S1 23:14 → 4S2 01-01 03:01

== ENCOUNTER 2021-08-29 07:50 | Inpatient (IN) ==
[2021-08-29] MEDS ORDERED: OXYTOCIN 30 UNITS/500 ML BAG IV PRN ×3 (07:56→18:33)
--- NOTE | 2021-08-29 07:59 | History & Physical Report ---
Date of Service August 29, 2021 Assessment & Plan (1) with 39 completed weeks gestation: (2) Anxiety disorder: Plan: Plan for elective induction for hx of precip delivery in last . Cx favorable. fetus categroy one. Plan pitocin induction, arom as indicated, epidural on demand. Anticipate . Admission and Anticipated Discharge Date Admission Date: August 29, 2021 History of Present Illness Chief Complaint: elective induction Primary Care Provider: Pedrito Anderson MD Patient is a who presents to labor and delivery at 39 weeks for elective induction of labor secondary to hx of precip delivery. Her has been essentially uncomplicated. Good FM, no lof/vb. Rare contractions noted. and Delivery Plans Low lying placenta - reaches but does not cover os -f/u at 32 wks RESOLVED Hypothyroid - follows endo *Check TFTs Q4wks History of eAB for multiple anomalies including ONTD, club foot -taking 4mg folic acid s/p Moderna vaccine -09/2020 Hx precipitous delivery -consider 39wk induction -on metoprolol for anxiety by cardiology - stopped by anatomy US Flu shot 02/21/21 ?AFP result *early Anatomy - wnl except low lying plac *Weekly NST's @ 36wks. OB Labs: Blood Type A Positive 01/25/21 Antibody Screen NEGATIVE 01/25/21 Hemoglobin 11.8 g/dL (12.0-16.0) L 08/26/21 Hematocrit 34.2 % (37-47) L 08/26/21 Mean Corpuscular Volume 92.7 fL (80-100) 08/26/21 Platelet Count 143 K/uL (130-400) 08/26/21 Rubella IgG Antibody Immune (Immune) 01/25/21 Rapid Plasma Reagin Nonreactive (Nonreactive) 01/25/21 Hepatitis B Surface Antigen Neg (Neg) 01/25/21 HIV (1&2) Ab and P24 Ag, 4th Gener Neg (Neg) 01/25/21 Glucose 1 Hour 50 gm Load 129 mg/dl (70-130)B 06/15/21 Maternal Serum Alpha Fetoprotein 45.0 ng/mL 03/21/21 OB Optional Labs: Chlamydia trachomatis RNA NOT DETECTED (NOT DETECTED) 01/25/21 Neisseria gonorrhoeae RNA NOT DETECTED (NOT DETECTED) 01/25/21 Thyroid Stimulating Hormone (TSH) 0.967 uIu/ml (0.300-4.500) 06/30/21 Alpha Fetoprotein Triple Screen SEE NOTE 03/21/21 Labs Reviewed: CF/SMA negative in prior (06/04/18) MSAFP elevated risk due to family history --> early jose nl spine Allergies Allergy/AdvReac Type Severity Reaction Status Date / Time No Known Drug Allergies Allergy Unknown Verified 08/26/21 11:28 Home Medications Medication Instructions Recorded Confirmed Type prenat.vits,juan,lmi-zrlp-kxdef 1 tab PO QPM 01/07/20 08/26/21 History folic acid 1 mg tablet 1 mg PO QPM 01/14/20 08/26/21 History ferrous sulfate 143 mg (45 mg 143 mg PO PM 03/01/20 08/26/21 History iron) tablet,extended release clindamycin-tretinoin 1.2 %-0.025 1 applic TOPICAL DAILY 03/08/20 08/26/21 History % topical gel levothyroxine 150 mcg tablet 150 mcg PO Q OTHER DAY #45 tab 02/22/21 08/26/21 Rx levothyroxine 175 mcg tablet 175 mcg PO DAILY #45 tab 02/22/21 08/26/21 Rx omeprazole [Prilosec] PO 08/19/21 08/26/21 History Patient History Medical History Anemia Anxiety Breast feeding status of mother Torres's thyroiditis Hemorrhoids Hypothyroidism IBS (irritable bowel syndrome) Leukopenia Retained products of conception following Uterine perforation by intrauterine contraceptive device Surgical History Encounter for IUD removal H/O eye surgery H/O laparoscopy History of colonoscopy History of elective History of esophagogastroduodenoscopy (EGD) History of medical termination of History of strabismus surgery S/P cholecystectomy S/P dilatation and curettage S/P thyroidectomy S/P wisdom tooth extraction Family History Mother Breast cancer Family hx colonic polyps Aunt Breast cancer maternal aunt Grandmother (Maternal) No problems noted. Grandmother (Paternal) Breast cancer Grandfather (Paternal) Lung cancer Other No family history of adverse response to anesthesia No family history of bleeding disorder Denies family history of Ovarian cancer Social History Smoking Status: Never smoker Years Smoked: 1; Second Hand Exposure: Yes (GRANDPARENTS SMOKED); Hx Alcohol Use: No Hx Substance Use: No Preferred Language: Estonian Communication Ability: Effective Embalmer Apprentice Required: No Beliefs That Will Affect Care: None marital status: marital status details: Vincent (31) [phone] Current Living Situation: Family Current Living Situation Comment: AND 4 CHILDREN, 1 dog. 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 Date GA wks Lbr Lgth wt Sex Type del Anes Place Del Prov ? Comment 04/20/05 38 6lb 2oz F Epidu ral [facility] Anabella Beck CNM No 07/28/06 40 6lb 14oz F Epid ural [facility] Suellen Pena CNM No 06/21/15 Aborted-Spontaneous 05/11/16 20 Aborted-Elective Other Leonardo No Multiple abnormalities - spina bifida, club feet 05/31/17 40 7lb 6oz. M Epid ural [facility] Dr. Rodriguez No placenta previa 12/31/18 40 7lbs 13.2oz M N one [facility] Dr. Rey No precipitous labor TEST SPECIALIST History noncontributory Physical Exam Constitutional: WD/WN, vitals as above Neck: trachea midline, no thyromegaly Gastrointestinal (Abdomen): soft, gravid, nt Psychiatric: A+Ox3, euthymic affect Genitourinary: cx--3/50/-2/mid/mod, efw 7-8 toco--occasional contraction efm--130s with mod variability, small accels, no decels. Code Status & VTE Plan VTE Prophylaxis Plan VTE Prophylaxis will be ordered: No Coding Level of Care Code None Diagnoses with 39 completed weeks gestation Z3A.39 Anxiety disorder F41.1 Anxiety disorder type: generalized anxiety disorder (1) Anxiety disorder Anxiety disorder type: generalized anxiety disorder Qualified Code(s): F41.1 - Generalized anxiety disorder
[2021-08-29 08:30] LABS: Hematocrit (blood only) 36.1 % (37-47); Hemoglobin 12.3 g/dL (12.0-16.0); Mean Corpuscular Hemoglobin 31.9 pg (25-34); Mean Corpuscular Hgb Conc 34.1 g/dL (32-36); Mean Corpuscular Volume 93.5 fL (80-100); Mean Platelet Volume 10.2 fL (7.4-10.4); Platelet Count 156 K/uL (130-400); RDW Coefficient of Variation 13.6 % (11.5-14.5); RDW Standard Deviation 46.8 fL (36.4-46.3); Red Blood Count 3.86 M/uL (4.2-5.4); White Blood Count 6.62 K/uL (4.8-10.8)
[2021-08-29] MEDS: LACTATED RINGER'S 1,000 ML IV PRN ×2 (08:44→12:19)
[2021-08-29] MEDS: PROPRANOLOL HCL 20 MG TAB PO SCH (11:17)
[2021-08-29] MEDS ORDERED: fentaNYL citrate 100 MCG/2 ML VIAL ONE (11:49)
[2021-08-29] MEDS ORDERED: SODIUM CHLORIDE 0.9% INJ 10 ML VIAL ONE (11:49)
[2021-08-29] MEDS ORDERED: ePHEDrine sulfate 50 MG/ML AMP ONE (11:49)
[2021-08-29] MEDS ORDERED: BUPIVACAINE 0.25% 30 ML VIAL ONE (11:50)
[2021-08-29] MEDS ORDERED: fentaNYL 2MCG/ML ROPIVACAINE 1.25MG/ML 100 ML BAG EPI ONE (11:50)
[2021-08-29] MEDS ORDERED: ePHEDrine sulfate 50 MG/ML AMP IV PRN (12:39)
[2021-08-29] MEDS ORDERED: diphenhydrAMINE 50 MG/ML VIAL IV PRN (12:39)
[2021-08-29] MEDS ORDERED: PROMETHAZINE HCL 6.25 MG in SODIUM CHLORIDE 0.9% 50 ML IV PRN (12:39)
[2021-08-29] MEDS ORDERED: NALOXONE HCL 1 MG in SODIUM CHLORIDE 0.9% 1000ML 1,000 ML IV PRN (12:39)
[2021-08-29] MEDS ORDERED: NALOXONE HCL 0.4 MG/1 ML VIAL/CARP IV PRN (12:39)
[2021-08-29] MEDS ORDERED: fentaNYL 2MCG/ML ROPIVACAINE 1.25MG/ML 100 ML BAG EPI PRN (12:39)
[2021-08-29] MEDS ORDERED: NALBUPHINE HCL INJ 10 MG/ML AMP IV PRN (12:39)
[2021-08-29] MEDS ORDERED: ONDANSETRON INJ 2 MG/ML 2 ML VIAL IV PRN (12:39)
--- NOTE | 2021-08-29 12:39 | Anesthesiology Consultation ---
Date of Service August 29, 2021 Assessment & Plan Chart Review Chart Review: Patient NOT seen in Pre Admission Testing and Acceptable Risk for Labor Epidural Consults Requested none ASA ASA2 Proposed Anesthesia Anesthesia Type: Labor Epidural Risk / Benefits Reviewed With: PT / POA / Parent / Guardian, Accepts Plan and Informed Consent Obtained History Height/Weight Height: 5 ft 0.5 in Weight: 69.4 kg Allergies Allergy/AdvReac Type Severity Reaction Status Date / Time No Known Drug Allergies Allergy Unknown Verified 08/29/21 08:30 Medications Home Medications Medication Instructions Recorded Confirmed Last Taken prenat.vits,juan,[id number] 1 tab PO QPM 01/07/20 08/29/21 08/28/21 20:00 folic acid 1 mg tablet 1 mg PO QPM 01/14/20 08/29/21 08/28/21 20:00 ferrous sulfate 143 mg (45 mg 143 mg PO PM 03/01/20 08/29/21 08/28/21 20:00 iron) tablet,extended release clindamycin-tretinoin 1.2 %-0.025 1 applic TOPICAL DAILY 03/08/20 08/29/21 03/07/20 08:00 % topical gel levothyroxine 150 mcg tablet 150 mcg PO Q OTHER DAY #45 tab 02/22/21 08/29/21 08/29/21 06:00 levothyroxine 175 mcg tablet 175 mcg PO DAILY #45 tab 02/22/21 08/29/21 08/28/21 06:00 omeprazole magnesium 20 mg 20 mg PO DAILY 08/29/21 08/29/21 08/28/21 20:00 tablet,delayed release (Prilosec OTC) Active Medications Generic Name Dose Route Start Last Admin Trade Name Freq PRN Reason Stop Dose Admin Lactated Ringer's 1,000 mls @ 125 mls/hr 08/29/21 07:56 08/29/21 12:20 Lr IV 08/31/21 07:55 125 mls/hr .Q8H PRN Infusion L&D Protocol Protocol Oxytocin 30 units in 500 mls @ 10 mls/hr 08/29/21 07:58 08/29/21 12:10 Pitocin IV 08/31/21 07:57 0.6 units/hr .Q24H PRN 10 mls/hr Labor Induction/Augmentation Titration Protocol 0.6 UNITS/HR Propranolol HCl 20 mg 08/29/21 10:45 08/29/21 11:17 Propranolol Hcl 20 Mg Tab PO 09/28/21 10:44 20 mg QAM NAOMI Administration Past Medical History Medical History Anemia Anxiety Breast feeding status of mother Torres's thyroiditis Hemorrhoids Hypothyroidism IBS (irritable bowel syndrome) Leukopenia Retained products of conception following Uterine perforation by intrauterine contraceptive device Exercise / Class Metabolic Activity II 4-5 Yardwork/Stairs/Walk up hill Past Family History Family History Mother Breast cancer Family hx colonic polyps Aunt Breast cancer maternal aunt Grandmother (Maternal) No problems noted. Grandmother (Paternal) Breast cancer Grandfather (Paternal) Lung cancer Other No family history of adverse response to anesthesia No family history of bleeding disorder Denies family history of Ovarian cancer Past Surgical History Surgical History Encounter for IUD removal H/O eye surgery H/O laparoscopy History of colonoscopy History of elective History of esophagogastroduodenoscopy (EGD) History of medical termination of History of strabismus surgery S/P cholecystectomy S/P dilatation and curettage S/P thyroidectomy S/P wisdom tooth extraction Past Anesthesia History No Hx of Anesthesia Complications and No Family Hx of Anesthesia Complications History of PONV No Hx of PONV and No Hx of Motion Sickness Social History Smoking Status: Never smoker Hx Alcohol Use: No Hx Substance Use: No substance use type: does not use Physical Exam Vital Signs Last Vital Signs Temp 37.0 C 08/29/21 08:14 Pulse 82 08/29/21 12:36 Resp 20 08/29/21 08:14 BP 133/80 08/29/21 12:36 Pulse Ox 100 08/29/21 12:36 ENMT Mouth: no dentition abnormality Thyromental Distance: > or= 3.5 Finger Breadths Mallampati Class: II Neck normal visual inspection Respiratory normal respiratory effort Auscultation: lungs clear to auscultation bilaterally Cardiovascular Rate/Rhythm: regular rate and regular rhythm Psychiatric Orientation: alert Testing Laboratory Results 08/29/21 08:11 Blood Type A Positive 08/29/21 08:11 Antibody Screen NEGATIVE 08/29/21 08:11
--- NOTE | 2021-08-29 13:49 | Labor Progress Brief Note ---
Date of Service August 29, 2021 Subjective comfortable. copious clear leakage Assessment & Plan (1) with 39 completed weeks gestation: Plan: continue current management. fetus category one. Admission and Anticipated Discharge Date Admission Date: August 29, 2021 Physical Exam Physical Exam: cx--4/50/-2 toco--q2-4, pit at 12 efm--130s with mod variability, small accels, no decels Results & Data ([facility]) Vital Signs (Past 12 Hours) Vital Signs Temp Pulse Resp BP Pulse Ox 08/29/21 13:46 108 H 100 08/29/21 13:45 86 122/77 08/29/21 13:41 78 100 08/29/21 13:40 36.9 C 76 20 122/71 08/29/21 13:36 82 99 08/29/21 13:31 78 100 08/29/21 13:29 76 125/82 08/29/21 13:26 77 100 08/29/21 13:25 74 127/79 08/29/21 13:21 79 100 08/29/21 13:20 77 120/79 08/29/21 13:16 80 20 100 08/29/21 13:15 83 129/84 08/29/21 13:11 81 100 08/29/21 13:09 80 140/86 08/29/21 13:06 84 100 08/29/21 13:05 73 124/79 08/29/21 13:01 77 100 08/29/21 13:00 81 20 129/86 08/29/21 12:56 84 100 08/29/21 12:54 82 124/83 08/29/21 12:51 82 100 08/29/21 12:50 80 128/81 08/29/21 12:46 88 99 08/29/21 12:43 37.0 C 76 20 123/77 08/29/21 12:41 77 116/74 99 08/29/21 12:39 76 119/74 08/29/21 12:37 77 125/78 08/29/21 12:36 82 133/80 100 08/29/21 12:33 91 H 93 08/29/21 12:32 84 165/85 H 08/29/21 12:31 91 H 99 08/29/21 12:30 82 137/94 08/29/21 11:17 103 H 121/80 08/29/21 10:58 100 H 129/86 08/29/21 09:48 100 H 133/87 08/29/21 08:35 104 H 132/92 08/29/21 08:16 103 H 134/92 08/29/21 08:14 37.0 C 20 Coding Level of Care Code None Diagnoses with 39 completed weeks gestation Z3A.39
--- NOTE | 2021-08-29 16:28 | Labor Progress Brief Note ---
Date of Service August 29, 2021 Subjective comfortable Assessment & Plan (1) with 39 completed weeks gestation: Plan: fetus category one. arom forebag, finally making cervical change. anticipate . Admission and Anticipated Discharge Date Admission Date: August 29, 2021 Physical Exam Physical Exam: cx--4/80/-2, arom forebag, copious clear toco--q1-2, pit at 16 efm--130s with mod variability, accels to 150s, no decels Results & Data ([facility]) Vital Signs (Past 12 Hours) Vital Signs Temp Pulse Resp BP Pulse Ox 08/29/21 16:21 80 100 08/29/21 16:16 86 100 08/29/21 16:13 76 134/88 08/29/21 16:11 78 100 08/29/21 16:06 88 100 08/29/21 16:01 37.0 C 70 18 100 08/29/21 15:58 75 128/80 08/29/21 15:56 75 100 08/29/21 15:51 77 100 08/29/21 15:46 92 H 100 08/29/21 15:45 86 20 91 08/29/21 15:42 79 139/89 08/29/21 15:41 71 100 08/29/21 15:37 36.8 C 20 08/29/21 15:36 78 98 08/29/21 15:34 80 90 08/29/21 15:31 74 20 99 08/29/21 15:27 72 127/85 91 08/29/21 15:26 78 96 08/29/21 15:21 76 98 08/29/21 15:16 86 100 08/29/21 15:12 73 132/84 08/29/21 15:11 75 99 08/29/21 15:06 77 99 08/29/21 15:01 75 98 08/29/21 14:58 71 134/83 08/29/21 14:56 86 99 08/29/21 14:51 76 99 08/29/21 14:50 86 92 08/29/21 14:46 79 20 99 08/29/21 14:43 85 112/69 08/29/21 14:41 99 H 99 08/29/21 14:36 84 99 08/29/21 14:31 87 20 98 08/29/21 14:26 79 98 08/29/21 14:25 83 107/64 08/29/21 14:21 80 98 08/29/21 14:19 81 106/67 08/29/21 14:16 85 20 99 08/29/21 14:15 81 110/66 08/29/21 14:11 93 H 99 08/29/21 14:09 82 109/75 08/29/21 14:06 79 98 08/29/21 14:05 82 104/70 08/29/21 14:01 84 100 08/29/21 14:00 75 20 109/72 08/29/21 13:56 90 100 08/29/21 13:55 89 113/76 08/29/21 13:51 79 100 08/29/21 13:50 80 112/72 08/29/21 13:46 108 H 100 08/29/21 13:45 86 122/77 08/29/21 13:41 78 100 08/29/21 13:40 36.9 C 76 20 122/71 08/29/21 13:36 82 99 08/29/21 13:31 78 100 08/29/21 13:29 76 125/82 08/29/21 13:26 77 100 08/29/21 13:25 74 127/79 08/29/21 13:21 79 100 08/29/21 13:20 77 120/79 08/29/21 13:16 80 20 100 08/29/21 13:15 83 129/84 08/29/21 13:11 81 100 08/29/21 13:09 80 140/86 08/29/21 13:06 84 100 08/29/21 13:05 73 124/79 08/29/21 13:01 77 100 08/29/21 13:00 81 20 129/86 08/29/21 12:56 84 100 08/29/21 12:54 82 124/83 08/29/21 12:51 82 100 08/29/21 12:50 80 128/81 08/29/21 12:46 88 99 08/29/21 12:43 37.0 C 76 20 123/77 08/29/21 12:41 77 116/74 99 08/29/21 12:39 76 119/74 08/29/21 12:37 77 125/78 08/29/21 12:36 82 133/80 100 08/29/21 12:33 91 H 93 08/29/21 12:32 84 165/85 H 08/29/21 12:31 91 H 99 08/29/21 12:30 82 137/94 08/29/21 11:17 103 H 121/80 08/29/21 10:58 100 H 129/86 08/29/21 09:48 100 H 133/87 08/29/21 08:35 104 H 132/92 08/29/21 08:16 103 H 134/92 08/29/21 08:14 37.0 C 20 Coding Level of Care Code None Diagnoses with 39 completed weeks gestation Z3A.39
[2021-08-29] MEDS ORDERED: CALCIUM CARBONATE 500 MG CHEWABLE TAB PO PRN (18:03)
--- NOTE | 2021-08-29 18:09 | Labor Progress Brief Note ---
Date of Service August 29, 2021 Subjective noting some pelvic pressure and pubic bone pain Assessment & Plan (1) with 39 completed weeks gestation: Plan: anticipate soon. fetus reassuring. Admission and Anticipated Discharge Date Admission Date: August 29, 2021 Physical Exam Physical Exam: cx--ant lip/0 toco--q2min efm--130s wtih mod variability, small accels, early with ctx Results & Data ([facility]) Vital Signs (Past 12 Hours) Vital Signs Temp Pulse Resp BP Pulse Ox 08/29/21 18:06 74 100 08/29/21 18:01 74 20 100 08/29/21 17:57 75 131/79 08/29/21 17:56 73 98 08/29/21 17:51 76 100 08/29/21 17:46 70 99 08/29/21 17:42 80 127/87 08/29/21 17:41 85 100 08/29/21 17:36 79 100 08/29/21 17:31 83 20 100 08/29/21 17:27 77 119/75 08/29/21 17:26 73 100 08/29/21 17:21 91 H 100 08/29/21 17:16 78 100 08/29/21 17:12 83 121/75 08/29/21 17:11 74 100 08/29/21 17:06 87 100 08/29/21 17:01 36.9 C 88 20 100 08/29/21 16:58 83 116/71 08/29/21 16:56 95 H 100 08/29/21 16:51 83 100 08/29/21 16:46 85 100 08/29/21 16:42 74 125/76 08/29/21 16:41 91 H 100 08/29/21 16:36 84 100 08/29/21 16:31 91 H 20 100 08/29/21 16:27 73 126/78 08/29/21 16:26 78 100 08/29/21 16:21 80 100 08/29/21 16:16 86 100 08/29/21 16:15 20 08/29/21 16:13 76 134/88 08/29/21 16:11 78 100 08/29/21 16:06 88 100 08/29/21 16:01 37.0 C 70 18 100 08/29/21 15:58 75 128/80 04/11/22 15:56 75 100 08/29/21 15:51 77 100 08/29/21 15:46 92 H 100 08/29/21 15:45 86 20 91 08/29/21 15:42 79 139/89 08/29/21 15:41 71 100 08/29/21 15:37 36.8 C 20 08/29/21 15:36 78 98 08/29/21 15:34 80 90 08/29/21 15:31 74 20 99 08/29/21 15:27 72 127/85 91 08/29/21 15:26 78 96 08/29/21 15:21 76 98 08/29/21 15:16 86 100 08/29/21 15:12 73 132/84 08/29/21 15:11 75 99 08/29/21 15:06 77 99 08/29/21 15:01 75 98 08/29/21 14:58 71 134/83 08/29/21 14:56 86 99 08/29/21 14:51 76 99 08/29/21 14:50 86 92 08/29/21 14:46 79 20 99 08/29/21 14:43 85 112/69 08/29/21 14:41 99 H 99 08/29/21 14:36 84 99 08/29/21 14:31 87 20 98 08/29/21 14:26 79 98 08/29/21 14:25 83 107/64 08/29/21 14:21 80 98 08/29/21 14:19 81 106/67 08/29/21 14:16 85 20 99 08/29/21 14:15 81 110/66 08/29/21 14:11 93 H 99 08/29/21 14:09 82 109/75 08/29/21 14:06 79 98 08/29/21 14:05 82 104/70 08/29/21 14:01 84 100 08/29/21 14:00 75 20 109/72 08/29/21 13:56 90 100 08/29/21 13:55 89 113/76 08/29/21 13:51 79 100 08/29/21 13:50 80 112/72 08/29/21 13:46 108 H 100 08/29/21 13:45 86 122/77 08/29/21 13:41 78 100 08/29/21 13:40 36.9 C 76 20 122/71 08/29/21 13:36 82 99 08/29/21 13:31 78 100 08/29/21 13:29 76 125/82 08/29/21 13:26 77 100 08/29/21 13:25 74 127/79 08/29/21 13:21 79 100 08/29/21 13:20 77 120/79 08/29/21 13:16 80 20 100 08/29/21 13:15 83 129/84 08/29/21 13:11 81 100 08/29/21 13:09 80 140/86 08/29/21 13:06 84 100 08/29/21 13:05 73 124/79 08/29/21 13:01 77 100 08/29/21 13:00 81 20 129/86 08/29/21 12:56 84 100 08/29/21 12:54 82 124/83 08/29/21 12:51 82 100 08/29/21 12:50 80 128/81 08/29/21 12:46 88 99 08/29/21 12:43 37.0 C 76 20 123/77 08/29/21 12:41 77 116/74 99 08/29/21 12:39 76 119/74 08/29/21 12:37 77 125/78 08/29/21 12:36 82 133/80 100 08/29/21 12:33 91 H 93 08/29/21 12:32 84 165/85 H 08/29/21 12:31 91 H 99 08/29/21 12:30 82 137/94 08/29/21 11:17 103 H 121/80 08/29/21 10:58 100 H 129/86 08/29/21 09:48 100 H 133/87 08/29/21 08:35 104 H 132/92 08/29/21 08:16 103 H 134/92 08/29/21 08:14 37.0 C 20 Coding Level of Care Code None Diagnoses with 39 completed weeks gestation Z3A.39
[2021-08-29] MEDS ORDERED: METHYLERGONOVINE MALEATE 0.2 MG/ML AMP ONE (18:25)
[2021-08-29] MEDS ORDERED: miSOPROStoL 200 MCG TAB ONE (18:30)
[2021-08-29] MEDS ORDERED: BENZOCAINE 20% AER SPR 82.5 GM CAN EXT PRN (18:33)
[2021-08-29] MEDS ORDERED: miSOPROStoL 200 MCG TAB PR ONE (18:33)
[2021-08-29] MEDS ORDERED: ACETAMINOPHEN 325 MG TAB PO PRN (18:33)
[2021-08-29] MEDS ORDERED: bisacodyL 10 MG SUPP PR PRN (18:33)
[2021-08-29] MEDS ORDERED: METHYLERGONOVINE MALEATE 0.2 MG/ML AMP IM ONE (18:33)
[2021-08-29] MEDS ORDERED: HYDROCORTISONE ACETATE 25 MG SUPP PR PRN (18:33)
[2021-08-29] MEDS ORDERED: DIPHTHERIA/TETANUS/PERTUSSIS 0.5 ML SYR/VIAL IM ONE (18:33)
[2021-08-29] MEDS ORDERED: oxyCODONE/ACETAMINOPHEN 5mg/325mg TAB PO PRN (18:33)
--- NOTE | 2021-08-29 18:37 | Delivery Summary ---
Vaginal Delivery Summary Date of Service August 29, 2021 Vaginal Delivery Summary Pre-operative Diagnosis: at 39 weeks hx of precipitous delivery Post-operative Diagnosis: same Procedure: pitocin induction srom/arom of forebag epidural EBL: 400cc Anesthesia: epidural Procedure: Patient was admitted with a favorable cervix. Was started on pitocin induction. after epidural thought had arom, but then I ruptured a ?forebag. she then progressed to c/c/+4. The patient pushed for one contraction to deliver a viable male in robbie position. The nose and mouth were bulb suctioned on the perineum and the rest of the was then delivered without difficulty. The baby was vigorous. The nose and mouth were again bulb suctioned and the infant was placed in the maternal abdomen for drying and attention. Cord was clamped and cut at one minute of life. Cord blood and segment obtained. Placenta delivered spontaneous, intact with a three vessel cord. Cervix/sulci/rectum were intact. Hemostasis obtained with dilute pitocin and fundal massage, im methergine and rectal cytotec. Apgars were 8/9. Mother and baby doing well at the end of the delivery. [facility] Vaginal Delivery Charge Delivery Type Details: [facility]
--- NOTE | 2021-08-29 19:26 | Anesthesiology Progress Note ---
Date of Service August 29, 2021 Anesthesia Post Procedure Vital Signs Vital Signs: Temp Pulse Resp BP Pulse Ox 08/29/21 19:13 78 131/88 08/29/21 18:58 85 127/80 08/29/21 18:43 93 H 20 123/78 08/29/21 18:32 90 20 124/77 08/29/21 18:28 83 124/80 08/29/21 18:27 90 129/82 08/29/21 18:23 92 H 133/82 08/29/21 18:16 86 81 L 08/29/21 18:12 88 139/87 08/29/21 18:11 85 100 08/29/21 18:06 74 100 08/29/21 18:01 74 20 100 08/29/21 17:57 75 131/79 08/29/21 17:56 73 98 08/29/21 17:51 76 100 08/29/21 17:46 70 99 08/29/21 17:42 80 127/87 08/29/21 17:41 85 100 08/29/21 17:36 79 100 08/29/21 17:31 83 20 100 08/29/21 17:27 77 119/75 08/29/21 17:26 73 100 08/29/21 17:21 91 H 100 08/29/21 17:16 78 100 08/29/21 17:12 83 121/75 08/29/21 17:11 74 100 08/29/21 17:06 87 100 08/29/21 17:01 36.9 C 88 20 100 08/29/21 16:58 83 116/71 08/29/21 16:56 95 H 100 08/29/21 16:51 83 100 08/29/21 16:46 85 100 08/29/21 16:42 74 125/76 08/29/21 16:41 91 H 100 08/29/21 16:36 84 100 08/29/21 16:31 91 H 20 100 08/29/21 16:27 73 126/78 08/29/21 16:26 78 100 08/29/21 16:21 80 100 08/29/21 16:16 86 100 08/29/21 16:15 20 08/29/21 16:13 76 134/88 08/29/21 16:11 78 100 08/29/21 16:06 88 100 08/29/21 16:01 37.0 C 70 18 100 08/29/21 15:58 75 128/80 08/29/21 15:56 75 100 08/29/21 15:51 77 100 08/29/21 15:46 92 H 100 08/29/21 15:45 86 20 91 08/29/21 15:42 79 139/89 08/29/21 15:41 71 100 08/29/21 15:37 36.8 C 20 08/29/21 15:36 78 98 08/29/21 15:34 80 90 08/29/21 15:31 74 20 99 08/29/21 15:27 72 127/85 91 08/29/21 15:26 78 96 08/29/21 15:21 76 98 08/29/21 15:16 86 100 08/29/21 15:12 73 132/84 08/29/21 15:11 75 99 08/29/21 15:06 77 99 08/29/21 15:01 75 98 08/29/21 14:58 71 134/83 08/29/21 14:56 86 99 08/29/21 14:51 76 99 08/29/21 14:50 86 92 08/29/21 14:46 79 20 99 08/29/21 14:43 85 112/69 08/29/21 14:41 99 H 99 08/29/21 14:36 84 99 08/29/21 14:31 87 20 98 08/29/21 14:26 79 98 08/29/21 14:25 83 107/64 08/29/21 14:21 80 98 08/29/21 14:19 81 106/67 08/29/21 14:16 85 20 99 08/29/21 14:15 81 110/66 08/29/21 14:11 93 H 99 08/29/21 14:09 82 109/75 08/29/21 14:06 79 98 08/29/21 14:05 82 104/70 08/29/21 14:01 84 100 08/29/21 14:00 75 20 109/72 08/29/21 13:56 90 100 08/29/21 13:55 89 113/76 08/29/21 13:51 79 100 08/29/21 13:50 80 112/72 08/29/21 13:46 108 H 100 08/29/21 13:45 86 122/77 08/29/21 13:41 78 100 08/29/21 13:40 36.9 C 76 20 122/71 08/29/21 13:36 82 99 08/29/21 13:31 78 100 08/29/21 13:29 76 125/82 08/29/21 13:26 77 100 08/29/21 13:25 74 127/79 08/29/21 13:21 79 100 08/29/21 13:20 77 120/79 08/29/21 13:16 80 20 100 08/29/21 13:15 83 129/84 08/29/21 13:11 81 100 08/29/21 13:09 80 140/86 08/29/21 13:06 84 100 08/29/21 13:05 73 124/79 08/29/21 13:01 77 100 08/29/21 13:00 81 20 129/86 08/29/21 12:56 84 100 08/29/21 12:54 82 124/83 08/29/21 12:51 82 100 08/29/21 12:50 80 128/81 08/29/21 12:46 88 99 08/29/21 12:43 37.0 C 76 20 123/77 08/29/21 12:41 77 116/74 99 08/29/21 12:39 76 119/74 08/29/21 12:37 77 125/78 08/29/21 12:36 82 133/80 100 08/29/21 12:33 91 H 93 08/29/21 12:32 84 165/85 H 08/29/21 12:31 91 H 99 08/29/21 12:30 82 137/94 08/29/21 11:17 103 H 121/80 08/29/21 10:58 100 H 129/86 08/29/21 09:48 100 H 133/87 08/29/21 08:35 104 H 132/92 08/29/21 08:16 103 H 134/92 08/29/21 08:14 37.0 C 20 Notes Mental Status: alert / awake / arousable Nausea / Vomiting: adequately controlled Pain: adequately controlled Airway Patency, RR, SpO2: stable & adequate BP & HR: stable & adequate Hydration State: stable & adequate Neuraxial Anesthesia: was administered and sensory block is resolving Anesthetic Complications: no major complications apparent and Pt Satisfied with anesthetic care
[2021-08-29] MEDS: DOCUSATE SODIUM 100 MG CAP PO SCH (21:41)
[2021-08-30] MEDS: IBUPROFEN 600 MG TAB PO PRN ×2 (06:25→10:41)
[2021-08-30] MEDS ORDERED: LEVOTHYROXINE SODIUM 150 MCG TABLET PO SCH (06:30)
[2021-08-30] MEDS ORDERED: LEVOTHYROXINE SODIUM 175 MCG TABLET PO SCH (06:30)
[2021-08-30 06:48] LABS: Hematocrit (blood only) 36.4 % (37-47); Hemoglobin 12.6 g/dL (12.0-16.0)
--- NOTE | 2021-08-30 06:48 | Obstetrical Progress Note ---
Date of Service <Luiza Hart DO - Last Filed: 08/30/21 07:29> August 30, 2021 Assessment & Plan <Luiza Hart - Last Filed: 08/30/21 07:29> (1) Encounter for care and examination after delivery: 36 yo post op day1 from [facility] anxiety, hypothyroidism, doing well. -Continue routine post care. -vital signs reviewed and WNL (Tmax 37.0) -Blood Type A+, GBS-, Rubella I[place]mune -Encourage ambulation, monitor and control pain with Motrin, tylenol PRN, resume regular diet, monitor lochia -encourage breast feeding -hemoglobin 12.3 Day #:: 1 <Rolanda Rodriguez MD, FACOG - Last Filed: 08/30/21 07:44> (1) Encounter for care and examination after delivery: Subjective <Luiza Hart - Last Filed: 08/30/21 07:29> Ambulation: ambulating normally Voiding: no voiding problems Passing Gas:: Yes Diet Tolerance:: regular diet Lochia:: Small Feeding Type:: breast feeding Current Pain Level(1-10): 0 Review of Systems Negative fever chills Negative headache dizziness Negative chest pain palpitations SOB Negative nausea vomitting diarrhea constipation Negative numbness tingling rash swelling Physical Exam <Luiza Hart - Last Filed: 08/30/21 07:29> General: Alert, oriented. No acute distress. Cardiac: Regular rate and rhythm, no murmurs/rubs/gallops. Respiratory: Clear to auscultation bilaterally a/p, no wheezes/rales/rhonchi. No increased work of breathing. Symmetrical chest rise. No respiratory distress. Abdomen: Soft, nontender, nondistended. Bowel sounds present. Uterus: Uterine fundus firm, palpable 2 cm below umbilicus. Lower Extremities: No lower extremity edema or swelling. No deep calf pain. Elsa's negative bilaterally.. Results & Data ([facility]) <Luiza Hart - Last Filed: 08/30/21 07:29> Vital Signs (Past 12 Hours) Vital Signs Temp Pulse Pulse Resp BP BP Pulse Ox 08/30/21 03:00 36.7 C 76 18 118/79 99 08/29/21 22:50 36.9 C 70 18 128/77 98 08/29/21 21:13 37.0 C 71 18 119/78 08/29/21 20:58 74 18 120/78 08/29/21 20:43 74 126/80 08/29/21 20:28 74 18 124/79 08/29/21 20:13 70 126/78 08/29/21 19:58 66 16 126/76 08/29/21 19:43 71 132/73 08/29/21 19:28 65 16 145/76 H 08/29/21 19:13 78 18 131/88 08/29/21 18:58 37.0 C 85 18 127/80 <Rolanda Rodriguez MD, FACOG - Last Filed: 08/30/21 07:44> Co-Signing Physician Notes Resident Physician Supervision Note: I was present with Dr. Hart during the history and exam. I discussed the case with the resident and agree with the findings and plan as documented in the note. Any exceptions or clarifications are listed here: Doing well. Plan d/c later this evening at 24 hours per patient request. Instructions given. short term f/u in 1-2 weeks to evaluate for anxiety. Documented By: Rolanda Rodriguez MD, FACOG Resident Activity Tracking <Luiza Hart DO - Last Filed: 08/30/21 07:29> Resident Involvement: Resident Care Provided Care Provided: Adult Hospital Medicine and OB Delivery
[2021-08-30] MEDS ORDERED: PRENATAL VITAMIN 1 TAB PO SCH (08:00)
[2021-08-30] MEDS: PROPRANOLOL HCL 20 MG TAB PO SCH (08:25)
[2021-08-30] MEDS: DOCUSATE SODIUM 100 MG CAP PO SCH (08:25)
[2021-08-30] MEDS ORDERED: bisacodyL 5 MG TABEC PO SCH (20:00)
== END 2021-08-30 19:18 | disposition home or self-care (01) | DRG 807 ==
LOC: 4S1 07:50 → 4E2 21:48

== ENCOUNTER 2024-07-05 09:44 | Inpatient (IN) ==
--- OUTSIDE RECORDS SUMMARY | 2024-07-05 09:57 | External Medical Summary | Summary of Care ---
Author Name Unknown Organization [facility] Address [address] [place] [address] Phone [phone] Care Team Providers Care Assembly Operator Name Role Phone Pedrito Anderson MD Primary Care Provider [phone]- [phone] Encounter Details Date Type Department Care Team (Late st Contact Info) Description 06/09/2024 Population Health External Data Unspecified Department Allergies No known active allergiesdocumented as of this encounter (statuses as of 06/09/2024) Medications clomiPRAMINE HCl 50 MG Oral Capsule (Anafranil)Kendal cations:Mood Disorder Take 2 Capsules by mouth every night at bedtime. Take in addition to 25 mg capsule (Total 125 mg every night) 60 Capsule 12/13/2023 11:29 AM EDT 4 Active Levothyroxine Sodium 137 MCG Oral TabletIndicatio ns:Hypothyroidi sm Take 1 Tablet by mouth daily first thing in the morning. (at least 30 min prior to breakfast or other meds) 30 Tablet 12/13/2023 11:29 AM EDT 4 Active [place]-3 Fish Oil 1000 MG Oral Capsule ([place]-3)Indica tions:Hyperchol esterolemia Take 1 Capsule by mouth in the morning. 30 Capsule 12/13/2023 11:29 AM EDT 4 Active Cholecalciferol 50 MCG (2000 UT) Oral TabletIndicatio ns:Vitamin D Deficiency Take 1 Tablet by mouth daily. 30 Tablet 12/13/2023 11:29 AM EDT 4 Active Metoprolol Succinate ER 25 MG Oral Tablet Extended Release 24 Hour (toPROL XL)Indications: Hypertension Take 1 Tablet by mouth in the morning. 30 Tablet 4 Active clomiPRAMINE HCl 25 MG Oral Capsule (Anafranil)Kendal cations:Mood Disorder Take 1 Capsule by mouth at bedtime. Take in addition to 50 mg capsules (Total 125 mg every night) 30 Capsule 12/13/2023 11:29 AM EDT 4 Active QUEtiapine Fumarate 25 MG Oral Tablet (SEROquel)Indic ations:Mood Disorder Take 1 Tablet by mouth at bedtime. 30 Tablet 12/13/2023 11:29 AM EDT 4 Active Mouth Kote Mouth/Throat SolutionIndicat ions:Xerostomia Take 3 Sprays by mouth every 6 hours as needed for Dry Mouth. 4 Active clonazePAM 1 MG Oral Tablet (KlonoPIN)Indic ations:Anxiety Take 0.5 Tablets by mouth in the morning and 0.5 Tablets at noon and 0.5 Tablets before bedtime. Use previous supply. 45 Tablet 4 Active Lactulose 10 GM/15ML Oral Solution (Constulose)Ind ications:Consti pation Take 30 mL by mouth in the morning and 30 mL before bedtime. 473 mL 12/13/2023 11:29 AM EDT 4 Active documented as of this encounter (statuses as of 06/09/2024) Active Problems Problem Noted Date Diagnosed Date Generalized anxiety disorder 12/01/2023 Panic attacks 12/01/2023 History of OCD (obsessive compulsive disorder) 0 12/01/2023 Obsessive-compulsive disorder 12/01/2023 Acne 04/14/2013 documented as of this encounter (statuses as of 06/09/2024) Resolved Problems Problem Noted Date Diagnosed Date Resolved Date Suicidal ideations 12/01/2023 4 documented as of this encounter (statuses as of 06/09/2024) Social History Tobacco Use Types Packs/Day Years Used Date Smoking Tobacco: Former Cigarettes 1 19.1 S tarted: 2005 Smokeless Tobacco: Never Alcohol Use Standard Drinks/Week Comments Yes 3 (1 standard drink = 0.6 oz pur e alcohol) 1-3 drinks per week AUDIT-C Answer Date Recorded Frequency of Alcohol Consumption Never 02/24/2020 Average Number of Drinks Not asked 020 Frequency of Binge Drinking Never 10/2019 Childcare Answer Date Recorded Do you feel overwhelmed with taking care of a child, family member or friend? Yes 12/01/2023 Does your family need help f inding childcare? (Household - for ages 0-17 years) Not on file 12/01/2023 Clothing Answer Date Recorded Have you been unable to get clothing when it was really needed? No 12/01/2023 Is your family able to get c lothes or diapers when needed? (Household - for ages 0-17 years) Not on file 12/01/2023 Personal Safety Answer Date Recorded Do you feel unsafe or have concerns for your saf ety? No 12/01/2023 Do you have concerns for you r family's safety? (Household - for ages 0-17 years) Not on file 12/01/2023 Utilities Answer Date Recorded Do you have trouble paying y our heating, water, or electric bill? No 12/01/2023 Is your family able to pay t he heat, water, or electric bill? (Household - for ages 0-17 years) Not on file 12/01/2023 Does your family have access to good internet? (Household - for ages 0-17 years) Not on file 12/01/2023 Social Connections Answer Date Recorded How often do you feel lonely or isolated from th ose around you? Always 12/01/2023 Financial Resource Strain Answer Date R ecorded Do you have any trouble payi ng for your medications, or do you think you might in the future? No 12/01/2023 Does your family have troubl e paying for medicine? (Household - for ages 0-17 years) Not on file 12/01/2023 Transportation Needs Answer Date Record ed Do you have trouble getting a ride to medical visits or work? (Adult - for ages 18 years and over) Not on file 12/01/2023 Does your family have a hard time getting a ride to doctors visits? (Household - for ages 0-17 years) Not on file 12/01/2023 Has lack of transportation k ept you from medical appointments, meetings, work, or from getting things needed for daily living? Check all that apply. No 12/01/2023 Do you (or your family) have trouble finding or paying for a ride (transportation)? (Household - for ages 0-17 years) Not on file 12/01/2023 Housing Stability Answer Date Recorded Do you currently live in a s helter or have no steady place to sleep at night? (Adult - for ages 18 years and over) Not on file 12/01/2023 Do you think you are at risk of becoming homeless? (Adult - for ages 18 years and over) Not on file 12/01/2023 Does your family worry about paying for your home or becoming homeless? (Household - for ages 0-17 years) Not on file 0 12/01/2023 Are you homeless or worried that you might be in the future? No 12/01/2023 Are you (or your family) leonides eless or worried that you might be in the future? (Household - for ages 0-17 years) Not on file Food Insecurity Answer Date Recorded Do you need food for this week? No 12/01/2023 Are you able to get enough f ood for your family? (Household - for ages 0-17 years) Not on file 12/01/2023 Does your family need food t his week? (Household - for ages 0-17 years) Not on file 12/01/2023 Do you always have enough fo od for your family? (Household - for ages 0-17 years) Not on file 12/01/2023 Education Answer Date Recorded What is the highest level of school you have completed or the highest degree you have received? Associate degree: academic program 12/01/2023 Comments No Sex and Gender Information Value Date Recorded Sex Assigned at Not on file Legal Sex Female 5:40 AM EST Gender Identity Not on file Sexual Orientation Not on file documented as of this encounter Functional Status * Does this person have serious difficulty walking or climbing stairs? Answer Date of Assessment Author Yes 12/01/2023 12:22 AM EDT documented as of this encounter Plan of Treatment Upcoming Encounters Date Type Department Care Team (Late st Contact Info) Description 09/15/2024 3:15 PM EDT Office Visit [facility] [address] [place] [address] Santos Paul MD [address] [place] [address] Health Maintenance Due Date Last Done Comments Depression Screening 1999 HIV Screening 2002 Hepatitis C Screening 2005 DTap/Tdap Vaccines (1 - Tdap) 2006 Hepatitis B Vaccine (1 of 3 - 19+ 3-dose series) 2006 Pap Smear 2008 Cervical Cancer Screening 2017 HPV/Co-Test 2017 COVID-19 Vaccine (1 - 2023-2 5 season) 2024 Influenza Vaccine (FLU shot) (#1) 2024 TSH 11/30/2024 12/01/2023 HPV (Gardasil) Vaccine Aged Out No lo nger eligible based on patient's age to complete this topic MENINGOCOCCAL (MENACTRA/MENVEO) Aged Out No longer eligible based on patient's age to complete this topic Pneumococcal Vaccine: Pediat rics (0 to 5 Years) and At-Risk Patients (6 to 18 Years and 19+ Years) Aged Out No longer eligible b ased on patient's age to complete this topic documented as of this encounter Medical Devices Not on filedocumented as of this encounter Advance Directives * Full Code (Latest Code Status on File) Date Activated Date Inactivated Comments 12/01/2023 2:05 AM 12/13/2023 10:14 PM This order reflects the patients wishes and were consensually agreed upon. Question Answer Comments Discussion of Advance Directives occurred with: Patient Does the patient have a Living Will? No Does the patient have Health Care Power of Attor guanaco? No Care Teams Assembly Operator Relationship Specialty Start Date End Date Pro, Pedrito Arellano MD [address] [place], [place] [address] PCP - General Internal Medicine 09/21/14 documented as of this encounter
--- OUTSIDE RECORDS SUMMARY | 2024-07-05 09:57 | External Medical Summary | Summary of Care ---
Author Name Unknown Organization [facility] Address [address] [place] [address] Phone [phone] Care Team Providers Care Clothing Busheler Name Role Phone Pedrito Anderson MD Primary Care Provider [phone]- [phone] Encounter Details Date Type Department Care Team (Late st Contact Info) Description 06/04/2024 Population Health External Data Unspecified Department Allergies No known active allergiesdocumented as of this encounter (statuses as of 06/04/2024) Medications clomiPRAMINE HCl 50 MG Oral Capsule [...] Tablet 12/13/2023 11:29 AM EDT 4 Active Beatty-3 Fish Oil 1000 MG Oral Capsule (Beatty-3)Indica tions:Hyperchol esterolemia Take 1 Capsule by mouth [...] as of this encounter (statuses as of 06/04/2024) Active Problems Problem Noted Date Diagnosed Date Generalized anxiety disorder 12/01/2023 Panic attacks 12/01/2023 History of OCD (obsessive compulsive disorder) 0 12/01/2023 Obsessive-compulsive disorder 12/01/2023 Acne 04/14/2013 documented as of this encounter (statuses as of 06/04/2024) Resolved Problems Problem Noted Date Diagnosed Date Resolved Date Suicidal ideations 12/01/2023 4 documented as of this encounter (statuses as of 06/04/2024) Social History Tobacco Use Types Packs/Day Years Used Date Smoking Tobacco: Former Cigarettes 1 19 S tarted: 2005 Smokeless Tobacco: Never Alcohol [...] Office Visit [facility] [address] [place] [address] Santos Paul MD [address] [place] [address] Health Maintenance Due Date Last Done Comments [...] Power of Attor guanaco? No Care Teams Clothing Busheler Relationship Specialty Start Date End Date Pro, Pedrito Arellano MD [address] [place], [place] [address] PCP - General Internal Medicine 09/21/14 documented as of this encounter
--- NOTE | 2024-07-05 10:17 | Emergency Department Note ---
Impression & Plan Alcohol abuse with withdrawal, Anxiety ED Provider Note NAME: WALTER MELO AGE: 39 SEX: F : 1985 ARRIVES VIA: Walk-In INFORMANT: Patient, ED PROVIDER(S): Pedrito Kraus DO CHIEF COMPLAINT: Alcohol withdrawal HPI: The patient is a 39-year-old female who presented to the emergency department with her mother for an evaluation of alcohol withdrawal. The patient does have a history of chronic alcohol use. She did have a period last months where the she was able to stop drinking. She did not go into withdrawal or have any seizures. The patient last drank alcohol last evening. She is tremulous. She does not feel good. She also think she may have pancreatitis. She presented to the emergency department for further evaluation. She denies having any black or tarry stools. ROS: See above HPI for pertinent positives & negatives. A total of 10 systems reviewed and were otherwise negative. PAST MEDICAL HISTORY: See Below PAST SURGICAL HISTORY: See Below FAMILY HISTORY: See Below SOCIAL HISTORY: See Below HOME MEDICATIONS: See Below ALLERGIES: See Below VITALS: See Below PHYSICAL EXAMINATION: GENERAL: The patient is awake and alert. The patient is very anxious. EYES: The conjunctivae are clear. The pupils are round and reactive. EARS, NOSE, MOUTH AND THROAT: The nose is without any evidence of any deformity. Mucous membranes are dry. NECK: The neck is nontender and supple. RESPIRATORY: Normal respiratory effort is noted there is no evidence of wheezing rhonchi or rales CARDIOVASCULAR: Tachycardic and regular heart sounds were noted auscultation. No definite murmur was noted. GASTROINTESTINAL: there is diffuse tenderness to palpation. There is no guarding or rigidity. MUSCULOSKELETAL/EXTREMITIES: There is no evidence of gross deformity full range of motion is noted in the hips and shoulders. SKIN: There is no obvious evidence of any rash. There are no petechiae, pallor or cyanosis noted. NEUROLOGIC: Patient is awake alert and oriented x3 strength is symmetric patellar reflexes are 3+ bilaterally MEDICAL DECISION MAKING: The patient is a 39-year-old female who presented to the emergency department for alcohol withdrawal. The patient last drank alcohol last evening. The patient was tremulous and had hyperreflexia. She was treated in usual fashion with IV fluids thiamine and Ativan. She was reevaluated multiple times. I discussed patient's laboratory and radiographic studies with her. Clinically she was significantly improved. The patient was felt to be a good candidate for detox. She was evaluated by the medical csr. I discussed the patient's condition with her. She was referred to outpatient detox. Triage Nursing notes reviewed. Prior medical records reviewed Vital Signs: reviewed and remarkable for tachycardia and initial hypertension. Differential diagnosis: Alcohol intoxication, toxicologic, infection, hypoglycemia, electrolyte abnormalities, cardiac sources, intracerebral event, neurologic, trauma, as well as other pathologies. ER treatment provided: See below Diagnostics interpreted by me: ECG: EKG was obtained in the emergency department. My interpretation is sinus tachycardia at 111 bpm. There is no ectopy. There is no acute ST segment abnormalities noted. Cardiac Monitoring: An order was placed for continuous cardiac monitoring. The monitor shows a rate of 117 bpm with sinus tachycardia. Laboratory studies: As stated above and show below. Imaging studies: See below. Radiographic imaging was reviewed by myself Consultation(s): I discussed this case with the emergency department mental health lead case manager The patient was evaluated in the emergency department. She was referred for inpatient detox to go directly from the emergency department to inpatient detox. 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 details in approx 2019. no further testing was needed/metoprolol for palpitations. summer had ekg and normal; findings compared with 2019 result resolved. Bile acid malabsorption syndrome IBS (irritable bowel syndrome) no current s/s. Torres thyroiditis pt not sure if active dx/hx thyroid removal. Abnormal CT of the abdomen mar 2024 findings per pt: non specific cecal wall thickening and uterus looked heterogenous. History of suicide attempt (2006) OCD (obsessive compulsive disorder) History of anemia Genetic testing patient negative for any breast cancer mutation Anxiety Hypothyroidism Secondary to thyroidectomy Surgical History H/O eye surgery 1989 History of esophagogastroduodenoscopy (EGD) History of colonoscopy History of strabismus surgery H/O laparoscopy removal of intra-abdominal IUD- uterine perforation S/P thyroidectomy HX S/P cholecystectomy HX 2006 S/P dilatation and curettage HX 2019 S/P wisdom tooth extraction HX History of elective Due to anomalies Family History Mother Breast cancer genetic testing +Check 2 mutation, neg brca 1,2 Family hx colonic polyps Aunt Breast cancer maternal aunt Grandmother (Maternal) No problems noted. Grandmother (Paternal) Breast cancer Grandfather (Paternal) Lung cancer Other No family history of adverse response to anesthesia No family history of bleeding disorder Denies family history of Ovarian cancer Social History Smoking Status: Never smoker Tobacco Type: Cigarettes Age Started Using Tobacco: 20; Age Quit Using Tobacco: 21; packs per day: 1; Second Hand Exposure: Yes (GRANDPARENTS SMOKED); Do You Dip or Chew Tobacco: No; Hx Alcohol Use: Yes (hx social use/none since mar 2024) Hx Substance Use: No Preferred Language: Japanese Communication Ability: Effective Visual Impairment: No Limitations Senior Associate Required: No Beliefs That Will Affect Care: None marital status: marital status details: Vincent (31) [phone] Current Living Situation: Spouse and Family Current Living Situation Comment: 2 daughters, 16,14 yo and 2 sons 2,4 yo current occupational status: unemployed 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 How many Children do You have: 4 Feels Safe at Home: Yes Assistive Devices: Glasses Allergies Allergies Allergy/AdvReac Type Severity Reaction Status Date / Time No Known Allergies Allergy Verified 05/12/24 11:50 Home Meds Home Medications Medication Instructions Recorded Confirmed docusate sodium 100 mg capsule 100 mg PO DAILY 06/23/22 07/05/24 (Colace) tretinoin 0.1 % topical cream 1 applic topical DAILY 02/15/23 07/05/24 clonazepam 1 mg tablet 0.5 mg PO TID PRN anxiety 04/03/24 07/05/24 aspirin 81 mg tablet,delayed 81 mg PO DAILY 04/04/24 07/05/24 release clomipramine 25 mg capsule 25 - 100 mg PO HS 04/04/24 07/05/24 (Anafranil) gabapentin 300 mg capsule 300 mg PO HS 04/04/24 07/05/24 quetiapine 25 mg tablet (Seroquel) 50 mg PO HS 04/04/24 07/05/24 lactulose 10 gram/15 mL oral 30 ml PO BID Constipation 04/25/24 07/05/24 solution omega-3 fatty acids 1,000 mg PO DAILY 04/25/24 07/05/24 metoprolol succinate 25 mg 25 mg PO BID 05/02/24 07/05/24 tablet,extended release 24 hr multivitamin 1 tab PO DAILY 07/05/24 07/05/24 Previous Rx's Medication Instructions Recorded clindamycin phosphate 1 % topical 1 applic topical DAILY #75 mL 11/09/23 gel, once daily levothyroxine 150 mcg tablet 150 mcg PO QAM #30 tabs 05/02/24 spironolactone 50 mg tablet 50 mg PO BID #60 tabs 05/02/24 pantoprazole 40 mg tablet,delayed 40 mg PO DAILY #30 tabs 05/12/24 release Results & Data (ED) Vital Signs Vital Signs - 24 hr 07/05/24 09:51 07/05/24 11:00 07/05/24 11:00 Temperature 37 C Temperature Source Temporal Artery Scan Pulse Rate 125 H 114 H Pulse Rate from SpO2 Sensor 114 H Respiratory Rate 28 H Respiratory Effort / Characteristics Spontaneous Respiratory Pattern Regular Blood Pressure 173/115 H 122/92 Blood Pressure Mean 134 103 Blood Pressure Position Sitting Pulse Oximetry 98 97 Oxygen Delivery Method Room Air Oxygen Flow Rate Sepsis Recent Fever Within 48 Hours No Sepsis New/Unexplained Change in Mental Status No Sepsis Action Taken by Nursing No Action Required 07/05/24 11:00 07/05/24 11:24 07/05/24 11:30 Temperature Temperature Source Pulse Rate 115 H Pulse Rate from SpO2 Sensor 116 H Respiratory Rate 17 Respiratory Effort / Characteristics Respiratory Pattern Blood Pressure 122/92 128/93 Blood Pressure Mean 103 107 Blood Pressure Position Pulse Oximetry 100 Oxygen Delivery Method Oxygen Flow Rate Sepsis Recent Fever Within 48 Hours Sepsis New/Unexplained Change in Mental Status Sepsis Action Taken by Nursing 07/05/24 11:39 07/05/24 11:42 07/05/24 12:00 Temperature Temperature Source Pulse Rate 117 H 122 H Pulse Rate from SpO2 Sensor 118 H 122 H Respiratory Rate 19 18 Respiratory Effort / Characteristics Respiratory Pattern Blood Pressure 123/93 Blood Pressure Mean 102 Blood Pressure Position Pulse Oximetry 98 98 Oxygen Delivery Method Oxygen Flow Rate Sepsis Recent Fever Within 48 Hours Sepsis New/Unexplained Change in Mental Status Sepsis Action Taken by Nursing 07/05/24 12:06 07/05/24 12:15 07/05/24 12:17 Temperature Temperature Source Pulse Rate 126 H 115 H Pulse Rate from SpO2 Sensor 112 H Respiratory Rate 11 L Respiratory Effort / Characteristics Respiratory Pattern Blood Pressure Blood Pressure Mean Blood Pressure Position Pulse Oximetry 100 96 Oxygen Delivery Method Room Air Oxygen Flow Rate 0 Sepsis Recent Fever Within 48 Hours Sepsis New/Unexplained Change in Mental Status Sepsis Action Taken by Nursing 07/05/24 12:21 07/05/24 12:30 07/05/24 12:45 Temperature Temperature Source Pulse Rate 112 H 107 H Pulse Rate from SpO2 Sensor 116 H 109 H Respiratory Rate 15 16 Respiratory Effort / Characteristics Respiratory Pattern Blood Pressure 127/98 Blood Pressure Mean 106 Blood Pressure Position Pulse Oximetry 97 97 Oxygen Delivery Method Oxygen Flow Rate Sepsis Recent Fever Within 48 Hours Sepsis New/Unexplained Change in Mental Status Sepsis Action Taken by Nursing 07/05/24 13:00 07/05/24 13:00 07/05/24 13:00 Temperature Temperature Source Pulse Rate 106 H Pulse Rate from SpO2 Sensor 109 H Respiratory Rate 18 Respiratory Effort / Characteristics Respiratory Pattern Blood Pressure 123/94 123/94 Blood Pressure Mean 101 101 Blood Pressure Position Pulse Oximetry 97 Oxygen Delivery Method Oxygen Flow Rate Sepsis Recent Fever Within 48 Hours Sepsis New/Unexplained Change in Mental Status Sepsis Action Taken by Nursing 07/05/24 13:00 07/05/24 13:21 07/05/24 13:30 Temperature Temperature Source Pulse Rate 122 H Pulse Rate from SpO2 Sensor 124 H Respiratory Rate 14 Respiratory Effort / Characteristics Respiratory Pattern Blood Pressure 123/94 131/99 Blood Pressure Mean 101 106 Blood Pressure Position Pulse Oximetry 97 Oxygen Delivery Method Oxygen Flow Rate Sepsis Recent Fever Within 48 Hours Sepsis New/Unexplained Change in Mental Status Sepsis Action Taken by Nursing 07/05/24 13:30 07/05/24 13:30 07/05/24 13:30 Temperature Temperature Source Pulse Rate Pulse Rate from SpO2 Sensor Respiratory Rate Respiratory Effort / Characteristics Respiratory Pattern Blood Pressure 131/99 131/99 131/99 Blood Pressure Mean 106 106 106 Blood Pressure Position Pulse Oximetry Oxygen Delivery Method Oxygen Flow Rate Sepsis Recent Fever Within 48 Hours Sepsis New/Unexplained Change in Mental Status Sepsis Action Taken by Nursing 07/05/24 13:33 07/05/24 13:57 07/05/24 14:00 Temperature Temperature Source Pulse Rate 117 H 116 H Pulse Rate from SpO2 Sensor 116 H 118 H Respiratory Rate 22 17 Respiratory Effort / Characteristics Respiratory Pattern Blood Pressure 133/108 H Blood Pressure Mean 117 Blood Pressure Position Pulse Oximetry 98 99 Oxygen Delivery Method Oxygen Flow Rate Sepsis Recent Fever Within 48 Hours Sepsis New/Unexplained Change in Mental Status Sepsis Action Taken by Nursing 07/05/24 14:06 07/05/24 14:30 07/05/24 14:30 Temperature Temperature Source Pulse Rate 115 H 106 H Pulse Rate from SpO2 Sensor 111 H 105 H Respiratory Rate 16 17 Respiratory Effort / Characteristics Respiratory Pattern Blood Pressure 140/96 Blood Pressure Mean 106 Blood Pressure Position Pulse Oximetry 99 98 Oxygen Delivery Method Oxygen Flow Rate Sepsis Recent Fever Within 48 Hours Sepsis New/Unexplained Change in Mental Status Sepsis Action Taken by Nursing 07/05/24 14:30 07/05/24 14:30 07/05/24 14:30 Temperature Temperature Source Pulse Rate Pulse Rate from SpO2 Sensor Respiratory Rate Respiratory Effort / Characteristics Respiratory Pattern Blood Pressure 140/96 140/96 140/96 Blood Pressure Mean 106 106 106 Blood Pressure Position Pulse Oximetry Oxygen Delivery Method Oxygen Flow Rate Sepsis Recent Fever Within 48 Hours Sepsis New/Unexplained Change in Mental Status Sepsis Action Taken by Nursing 07/05/24 16:05 Temperature Temperature Source Pulse Rate 122 H Pulse Rate from SpO2 Sensor Respiratory Rate Respiratory Effort / Characteristics Respiratory Pattern Blood Pressure Blood Pressure Mean Blood Pressure Position Pulse Oximetry Oxygen Delivery Method Oxygen Flow Rate Sepsis Recent Fever Within 48 Hours Sepsis New/Unexplained Change in Mental Status Sepsis Action Taken by Skilled Nursing Medications Current Medication List: was personally reviewed by me Laboratory Data Attestation: I reviewed the patient's lab results. 07/05/24 10:12 07/05/24 10:12 Lab Results 07/05/24 07/05/24 Range/Units 10:12 12:12 WBC 6.51 (4.8-10.8) K/ul RBC 4.02 L (4.20-5.40) M/uL Hgb 12.8 (12.0-16.0) g/dl Hct 37.4 (37.0-47.0) % MCV 93.0 (80.0-100.0) fL MCH 31.8 (25.0-34.0) pg MCHC 34.2 (32.0-36.0) g/dL RDW Std Deviation 44.2 (36.4-46.3) fL RDW Coeff of Seamus 12.8 (11.5-14.5) % Plt Count 291 (130-400) K/uL MPV 9.8 (9.4-12.4) fL Immature Gran % (Auto) 0.2 % Neut % (Auto) 68.3 % Lymph % (Auto) 27.0 % [place] % (Auto) 4.0 % Eos % (Auto) 0.3 % Baso % (Auto) 0.2 % Neut # (Auto) 4.45 (1.40-6.50) K/uL Lymph # (Auto) 1.76 (1.20-3.40) K/uL [place] # (Auto) 0.26 (0.11-0.59) K/uL Eos # (Auto) 0.02 (0.00-0.50) K/uL Baso # (Auto) 0.01 (0.00-0.20) K/uL Immature Gran # (Auto) 0.01 (0.01-0.20) K/uL Sodium 140 (136-145) mmol/L Potassium 3.8 (3.5-5.1) mmol/L Chloride 103 (98-107) mmol/L Carbon Dioxide 26 (21-32) mmol/L Anion Gap 11 (3-11) BUN 18 (6-23) mg/dl Creatinine 0.70 (0.6-1.2) mg/dl Est Cr Clr Drug Dosing 83.0 ml/min eGFR 114.16 BUN/Creatinine Ratio 25.7 H (10-20) Glucose 96 (70-99(Fasting)) mg/dl Calcium 9.3 (8.6-10.3) mg/dl Magnesium 2.0 (1.7-2.4) mg/dl Total Bilirubin 0.4 (0.2-1.0) mg/dl AST 56 H (13-39) U/L ALT 38 (7-52) U/L Alkaline Phosphatase 57 (34-104) U/L Troponin I High Sens 2.9 (0-14) pg/ml Total Protein 8.0 (6.0-8.3) gm/dl Albumin 4.6 (3.4-5.0) gm/dl Globulin 3.4 (2.5-4.0) gm/dl Albumin/Globulin Ratio 1.4 (0.9-2) Lipase 65 (11-82) U/L TSH 0.276 L (0.300-4.500) uIu/ml Free T4 1.15 (0.61-1.60) ng/dl HCG, Qual Negative (Negative) Urine Color Yellow Urine Appearance Clear (Clear) Urine pH 8.0 H (4.5-7.5) Ur Specific [place] 1.018 (1.000-1.030) Urine Protein Trace H (Negative) Urine Glucose (UA) Negative (Negative) Urine Ketones Trace H (Negative) Urine Blood Negative (Negative) Urine Nitrite Negative (Negative) Urine Bilirubin Negative (Negative) Urine Urobilinogen Negative (Negative) Ur Leukocyte Esterase Trace H (Negative) Urine WBC (Auto) 0-5 (0-5) /hpf Urine RBC (Auto) 0-2 (0-2) /hpf U Hyaline Cast (Auto) 0-2 (0-2) /lpf U Epithel Cells (Auto) 6-10 H (0-2) /hpf Urine Bacteria (Auto) None Seen (None Seen) POC Ur Test NEG (NEG) Salicylates < 3.0 L (3.0-30) mg/dl Urine Opiates Screen Neg (Neg) Ur Methadone, Qual Neg (Neg) Urine Fentanyl Screen Neg (Neg) Acetaminophen < 3 L (10-30) ug/ml Urine Barbiturates Neg (Neg) Ur Phencyclidine (PCP) Neg (Neg) U Amphetamin/Meth Scrn Neg (Neg) MDMA (Ecstasy) Screen Neg (Neg) U Benzodiazepines Scrn Neg (Neg) Ur Cocaine Metabolite Neg (Neg) U Marijuana (THC) Screen Neg (Neg) Ethyl Alcohol mg/dL 90.3 H (<10.0) mg/dl SARS-CoV-2, RNA, NAAT NEGATIVE (NEGATIVE) Administered Medications Discontinued Medications Sodium Chloride (Nss) 1,000 mls @ 999 mls/hr IV .Q1H1M ONE Stop: 07/05/24 11:13 Last Infusion: 07/05/24 11:43 Dose: Infused Documented By: Admin: 07/05/24 10:36 Dose: 999 mls/hr Documented By: AM Thiamine HCl 200 mg/ Sodium (Chloride) 52 mls @ 210 mls/hr IV NOW STA Stop: 07/05/24 10:27 Last Infusion: 07/05/24 11:43 Dose: Infused Documented By: Admin: 07/05/24 11:20 Dose: 210 mls/hr Documented By: AM Pantoprazole Sodium (Protonix) 40 mg in 10 mls @ 5 mls/min IV NOW ONE Stop: 07/05/24 10:19 Last Admin: 07/05/24 10:39 Dose: 5 mls/min Documented By: AM Famotidine (Pepcid 20mg Iv Push) 20 mg in 5 mls @ 2.5 mls/min IV NOW STA Stop: 07/05/24 10:19 Last Admin: 07/05/24 10:37 Dose: 2.5 mls/min Documented By: AM Lorazepam (Lorazepam 1 Mg/1 Ml Syr Ed Inj Use) 1 mg IV ONE STA Stop: 07/05/24 10:14 Last Admin: 07/05/24 10:36 Dose: 1 mg Documented By: AM Lorazepam (Lorazepam 2 Mg/1 Ml Vial) 1 mg IV NOW STA Stop: 07/05/24 11:57 Last Admin: 07/05/24 12:09 Dose: 1 mg Documented By: AM Lorazepam (Lorazepam 2 Mg/1 Ml Vial) 1 mg IV NOW STA Stop: 07/05/24 13:45 Last Admin: 07/05/24 14:09 Dose: 1 mg Documented By: AM Lorazepam (Lorazepam 1 Mg/1 Ml Syr Ed Inj Use) 1 mg IV ONE STA Stop: 07/05/24 15:01 Last Admin: 07/05/24 15:43 Dose: 1 mg Documented By: BS Imaging Data Attestation: I personally reviewed and interpreted this imaging study as follows: My Impression: Chest x-ray was obtained in the emergency department. My interpretation is no free air or definite infiltrate, final report below. Radiologist's Impression: Chest X-Ray 07/05/24 10:13 XR chest 1V portable CLINICAL HISTORY: Withdrawal. COMPARISON STUDY: Chest CT February 13, 2020. Chest radiograph December 17, 2023. FINDINGS: Lung volumes are normal. Lungs are clear. There is no pneumothorax or pleural effusion. Cardiac size is normal. Mediastinal contours are normal. There is no evidence for pulmonary edema. IMPRESSION: No acute cardiopulmonary findings. ACT 112: Negative or not required by law. Electronically signed by: Camilo Palma M.D. 07/05/2024 11:31 AM Discharge Plan Visit Data Chief Complaint: Detox Request Stated Complaint: ALCOHOL WITHDRAWAL ED Provider: Klarissa Moy Discharge Problem: Alcohol abuse with withdrawal, Anxiety Patient Disposition: Drug & Alcohol Rehab Condition: Good Discharge Instructions Krames/Other Patient Handouts: ED Alcohol Withdrawal Activity Restrictions/Additional Instructions: Do not drive or operate any heavy machinery. Go directly to detox for inpatient treatment and further evaluation. Return to the emergency department immediately if symptoms change worsen or if the need arises. Do not have any further alcoholic beverages prior to evaluation for detox. Forms Stand Alone Forms: My [facility], Suicide Prevention Resources, Important Visit Information Prescriptions Prescriptions: No Action clindamycin phosphate 1 % gel, once daily 1 applic topical DAILY Qty: 75 3RF clonazepam 1 mg tablet 0.5 mg PO TID PRN (Reason: anxiety) Patient Comments: CONFIRMED W/ PT'S SHE TAKES 0.5M TID PRN FOR ANXIETY clomipramine [Anafranil] 25 mg capsule 25 - 100 mg PO HS Patient Comments: CONFIRMED W/ PT'S THAT SHE TAKES 125MG TOTAL AT HS 04/03/24 Rx Instructions: 25 mg po qam and 100mg po hs levothyroxine 150 mcg tablet 150 mcg PO QAM Qty: 30 2RF docusate sodium [Colace] 100 mg capsule 100 mg PO DAILY tretinoin 0.1 % cream 1 applic topical DAILY gabapentin 300 mg capsule 300 mg PO HS quetiapine [Seroquel] 25 mg tablet 50 mg PO HS aspirin 81 mg tablet,delayed release (DR/EC) 81 mg PO DAILY Rx Instructions: hasnt been taking consistently metoprolol succinate 25 mg tablet extended release 24 hr 25 mg PO BID spironolactone 50 mg tablet 50 mg PO BID Qty: 60 2RF pantoprazole 40 mg tablet,delayed release (DR/EC) 40 mg PO DAILY Qty: 30 5RF omega-3 fatty acids Capsule 1,000 mg PO DAILY lactulose 10 gram/15 mL solution 30 ml PO BID Rx Instructions: TAKE 30 ML BY MOUTH TWICE DAILY NEEDED FOR CONSTIPATION multivitamin [Multi-Vitamin] Tablet 1 tab PO DAILY Referrals Referrals: Pro,Pedrito Kline MD [Primary Care Provider] -
[2024-07-05 10:31] LABS: Basophils # (auto) 0.01 K/uL (0.00-0.20); Basophils % (auto) 0.2 %; Eosinophils # (auto) 0.02 K/uL (0.00-0.50); Eosinophils % (auto) 0.3 %; Hematocrit (blood only) 37.4 % (37.0-47.0); Hemoglobin 12.8 g/dl (12.0-16.0); Immature Granulocytes # (auto) 0.01 K/uL (0.01-0.20); Immature Granulocytes % (auto) 0.2 %; Lymphocytes # (auto) 1.76 K/uL (1.20-3.40); Mean Corpuscular Hemoglobin 31.8 pg (25.0-34.0); Mean Corpuscular Hgb Conc 34.2 g/dL (32.0-36.0); Mean Platelet Volume 9.8 fL (9.4-12.4); Monocytes # (auto) 0.26 K/uL (0.11-0.59); Neutrophils # (auto) 4.45 K/uL (1.40-6.50); Neutrophils % (auto) 68.3 %; Platelet Count 291 K/uL (130-400); RDW Coefficient of Variation 12.8 % (11.5-14.5); RDW Standard Deviation 44.2 fL (36.4-46.3); Red Blood Count 4.02 M/uL (4.20-5.40); White Blood Count 6.51 K/ul (4.8-10.8)
[2024-07-05] MEDS: LORazepam 1 MG/1 ML SYR ED Inj Use IV STA ×2 (10:36→15:43)
[2024-07-05] MEDS: SODIUM CHLORIDE 0.9% 1,000 ML IV ONE (10:36)
[2024-07-05] MEDS: FAMOTIDINE 20MG IV PUSH 20 MG/5 ML SYR IV STA (10:37)
[2024-07-05] MEDS: PANTOprazole 40 MG/10 ML SYR IV ONE (10:39)
[2024-07-05 10:41] LABS: Albumin Level 4.6 gm/dl (3.4-5.0); Bilirubin,Total 0.4 mg/dl (0.2-1.0); Calcium 9.3 mg/dl (8.6-10.3); Potassium 3.8 mmol/L (3.5-5.1)
[2024-07-05 10:47] LABS: Albumin Globulin Ratio 1.4 (0.9-2); BUN Creatinine Ratio 25.7 (10-20); Globulin 3.4 gm/dl (2.5-4.0)
[2024-07-05 10:48] LABS: Acetaminophen < 3 ug/ml (10-30); Salicylate < 3.0 mg/dl (3.0-30)
[2024-07-05 10:49] LABS: Troponin I High Sensitivity 2.9 pg/ml (0-14)
[2024-07-05 10:56] LABS: Pregnancy Test, Serum Negative (Negative)
[2024-07-05 10:59] LABS: Thyroid Stimulating Hormone 0.276 uIu/ml (0.300-4.500)
--- NOTE | 2024-07-05 11:16 | Electrocardiogram Report ---
Test Reason : Blood Pressure : */* mmHG Vent. Rate : 111 BPM Atrial Rate : 111 BPM P-R Int : 152 ms QRS Dur : 74 ms QT Int : 352 ms P-R-T Axes : 54 43 39 degrees QTcB Int : 478 ms Sinus tachycardia Otherwise normal ECG When compared with ECG of 17-Dec-2023 18:20, No significant change was found Confirmed by Vincent Dillard ([id number]) on 07/05/2024 11:16:40 AM Referred By: Confirmed By: Vincent Dillard
[2024-07-05] MEDS: THIAMINE HCL 200 MG in SODIUM CHLORIDE 0.9% 50 ML IV STA (11:20)
[2024-07-05 11:32] LABS: T4 Free Thyroxine 1.15 ng/dl (0.61-1.60)
--- NOTE | 2024-07-05 11:33 | XRay Report ---
XR chest 1V portable CLINICAL HISTORY: Withdrawal. COMPARISON STUDY: Chest CT February 13, 2020. Chest radiograph December 17, 2023. FINDINGS: Lung volumes are normal. Lungs are clear. There is no pneumothorax or pleural effusion. Car diac size is normal. Mediastinal contours are normal. There is no evidence for pulmonary edema. IMPRESSION: No acute cardiopulmonary findings. ACT 112: Negative or not required by law. Electronically signed by: Camilo Palma M.D. 07/05/2024 11:31 AM
[2024-07-05] MEDS: LORazepam 2 MG/1 ML VIAL IV STA ×2 (12:09→14:09)
[2024-07-05 12:35] LABS: Appearance Urine Clear (Clear); Bacteria Urine Automated None Seen (None Seen); Bilirubin Urine Negative (Negative); Blood Urine Negative (Negative); Cast Urine Automated 0-2 /lpf (0-2); Color Urine Yellow; Glucose Urine UA Negative (Negative); Ketones Urine Trace (Negative); Leukocyte Esterase Urine Trace (Negative); Nitrite Urine Negative (Negative); Protein Urine Trace (Negative); RBC Urine Automated 0-2 /hpf (0-2); Specific Gravity Urine 1.018 (1.000-1.030); Urobilinogen Urine Negative (Negative); WBC Urine Automated 0-5 /hpf (0-5)
[2024-07-05 12:58] LABS: Amphetamines+Metham, Urine Neg (Neg); Barbiturates, Urine Neg (Neg); Benzodiazepine, Urine Neg (Neg); Cocaine, Urine Neg (Neg); Fentanyl, Urine Neg (Neg); MDMA (Ecstacy), Urine Neg (Neg); Marijuana, Urine Neg (Neg); Methadone, Urine Neg (Neg); Opiate, Urine Neg (Neg); Phencyclidine, Urine Neg (Neg)
--- NOTE | 2024-07-05 14:50 | Emergency Department Note ---
ED Visit Note Patient signed out to me by Dr. Kraus. Patient is a 39 year old female presenting for alcohol detox. She is medically cleared and she was offered admission to the hospital, but would like to go to rehab facility. [facility] referral was sent to [facility], but pending a call back at this time. Alcohol withdrawal severity score and as needed IV Ativan was ordered for patient's withdrawal symptoms. Patient has required multiple doses of Ativan since being under my care. Patient's last drink was last night. 17:23: Updated by correctional case records supervisor that [facility] does not have a rehab bed for the patient until tomorrow. Upon further discussion with the patient, she is agreeable for medical admission for detox until an outpatient rehab facility bed can be obtained. Discussed case with [facility] hospitalist, patient will be admitted to the [facility] hospitalist service for further evaluation and management of her alcohol withdrawal. .
[2024-07-05] MEDS ORDERED: LORazepam 2 MG/1 ML VIAL IV PRN ×3 (14:51)
[2024-07-05] MEDS ORDERED: Ativan IV Alcohol Withdrawal--Active Protocol IV PRN (14:51)
--- NOTE | 2024-07-05 17:45 | History & Physical Report ---
Date of Service July 05, 2024 Assessment & Plan (1) Alcohol abuse with withdrawal: Plan: Alcohol withdrawal, detox request Patient drinking 1/5 of vodka every other day periodic alcohol for periods and then binge drinking for a week or so. Last alcohol PE. Was 1 to 2 weeks ago for couple of days no seizures does get shakes and tremors Health alcohol level 90.3 on morning ER evaluation 07/05 At bedside assessment patient is tremulous, tachycardic, slightly diaphoretic and appears to be in withdrawal. Positive alcohol level with last alcohol intake at around midnight evening of 07/04 into 07/05 Received several doses of lorazepam while in the ER however is clearly with withdrawal symptoms and also remains volume contracted on hospitalist assessment Will frontloaded with Valium. Will give 5-10 mg IV up to 3 doses q. 30 minutes - 1 hour and monitor for respiratory suppression and then continue AWSS. Phenobarbital deferred as patient has already been receiving benzodiazepines and she has done well with benzodiazepine treatment in the past per patient. Also feel that she is at increased risk of withdrawal severity is despite being alcohol free recently has had progressively worsening withdrawal and multiple withdrawal periods recently and is showed clear withdrawal symptoms despite a positive alcohol level earlier. Received thiamine and 1 L of NSS, is volume contracted with dry mucous membranes. Additional liter of Plasma-Lyte, and p.o. intake encouraged Seizure precautions, no prior history of seizure Continue PPI Case management consulted. Patient has been accepted to [facility] when medically ready, earliest bed availability would be 07/06 and given her withdrawal symptoms at time of admitting consultation do recommend she be treated medically for withdrawal as inpatient prior to this Consider naltrexone on discharge for pharmacologic assisted sobriety Thiamine/folic acid repletion daily Hypothyroidism S/p surgical removal of her thyroid due to reported thyroiditis. Continue Synthroid 150 mcg daily OCD/anxiety Continue clomipramine, Seroquel. Clonazepam held while patient is on Valium/Ativan assess. 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 Do not hold for risk of beta-evelyn withdrawal DVT prophylaxis: SCDs Diet: Regular Disposition: PCU CODE STATUS: Full code (2) Hypothyroidism: (3) History of thyroidectomy: (4) Anxiety disorder: (5) OCD (obsessive compulsive disorder): History of Present Illness Primary Care Provider: Pedrito Anderson MD Last drink was midnight 07/04 into 05/04 Typically will binge drink several days in a row, then not drink for a week or so. Last ETOH free period >5 days 1-2 weeks ago Drinks vodka. Fifth of liquor lasts ~2 days. NO beer or wine. NO history of seizures. Has been through withdrawal before with sweating, shaking, tachycardia. Last episode of withdrawal was March. Has been hospitalized for withdrawal in [facility] in the ICU. No bloody/black BMs or history of bleeding No ingestions MedHx: - Hypothyroidism - OCD - Anxiety Prescription meds: - clompiramine 100mg HS, 25mg AM - Clonazepam 0.5mg up to TID, typically takes 1 tablet at night - synthroid 150mcg daily 2/2 surgical removal of thryoid after episode of thyroiditis - protonix - Metoprolol for anxiety and palpitations. Did not take today - Spironolactone for skin issues 50mg BID - Seroquel for sleep - Gabapentin 300mg HS for restless legs - No longer really takes baby aspirin, took temporarily because she was very nervous about blood clots post COVID Medical History: Reviewed Medications: Reviewed. NKMA. Surgical History: Reviewed Family history: Reviewed Allergies: Reviewed Social History: No tobacco use. No recreational drug. Code Status: Full Allergies Allergy/AdvReac Type Severity Reaction Status Date / Time No Known Allergies Allergy Verified 05/12/24 11:50 Home Medications Medication Instructions Recorded Confirmed Type docusate sodium 100 mg capsule 100 mg PO DAILY 06/23/22 07/05/24 History (Colace) tretinoin 0.1 % topical cream 1 applic topical DAILY 02/15/23 07/05/24 History clindamycin phosphate 1 % topical 1 applic topical DAILY #75 mL 11/09/23 07/05/24 Rx gel, once daily clonazepam 1 mg tablet 0.5 mg PO TID PRN anxiety 04/03/24 07/05/24 History aspirin 81 mg tablet,delayed 81 mg PO DAILY 04/04/24 07/05/24 History release clomipramine 25 mg capsule 25 - 100 mg PO HS 04/04/24 07/05/24 History (Anafranil) gabapentin 300 mg capsule 300 mg PO HS 04/04/24 07/05/24 History quetiapine 25 mg tablet (Seroquel) 50 mg PO HS 04/04/24 07/05/24 History lactulose 10 gram/15 mL oral 30 ml PO BID Constipation 04/25/24 07/05/24 History solution omega-3 fatty acids 1,000 mg PO DAILY 04/25/24 07/05/24 History levothyroxine 150 mcg tablet 150 mcg PO QAM #30 tabs 05/02/24 07/05/24 Rx metoprolol succinate 25 mg 25 mg PO BID 05/02/24 07/05/24 History tablet,extended release 24 hr spironolactone 50 mg tablet 50 mg PO BID #60 tabs 05/02/24 07/05/24 Rx pantoprazole 40 mg tablet,delayed 40 mg PO DAILY #30 tabs 05/12/24 07/05/24 Rx release multivitamin 1 tab PO DAILY 07/05/24 07/05/24 History Past Med/Surg History Problem List (Updated 07/05/24 @ 14:34 by Pedrito Kraus DO) Anxiety (Acute) Alcohol abuse with withdrawal (Acute) Increased risk of breast cancer TC SCORE 21.7% Family history of breast cancer Extremely dense tissue of both breasts on mammography Personal history of colonic polyps Esophagitis Abnormal CT of the abdomen Abdominal pain Headache Neck pain Constipation Encounter for annual routine gynecological examination Abnormal ECG Palpitation Hypothyroidism 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 details in approx 2019. no further testing was needed/metoprolol for palpitations. summer had ekg and normal; findings compared with 2019 result resolved. Bile acid malabsorption syndrome IBS (irritable bowel syndrome) no current s/s. Torres thyroiditis pt not sure if active dx/hx thyroid removal. Abnormal CT of the abdomen mar 2024 findings per pt: non specific cecal wall thickening and uterus looked heterogenous. History of suicide attempt (2006) OCD (obsessive compulsive disorder) History of anemia Genetic testing patient negative for any breast cancer mutation Anxiety Hypothyroidism Secondary to thyroidectomy Surgical History H/O eye surgery 1989 History of esophagogastroduodenoscopy (EGD) History of colonoscopy History of strabismus surgery H/O laparoscopy removal of intra-abdominal IUD- uterine perforation S/P thyroidectomy HX S/P cholecystectomy HX 2007 S/P dilatation and curettage HX 2020 S/P wisdom tooth extraction HX History of elective Due to anomalies Family History Mother Breast cancer genetic testing +Check 2 mutation, neg brca 1,2 Family hx colonic polyps Aunt Breast cancer maternal aunt Grandmother (Maternal) No problems noted. Grandmother (Paternal) Breast cancer Grandfather (Paternal) Lung cancer Other No family history of adverse response to anesthesia No family history of bleeding disorder Denies family history of Ovarian cancer Social History Smoking Status: Never smoker Tobacco Type: Cigarettes Age Started Using Tobacco: 20; Age Quit Using Tobacco: 21; packs per day: 1; Second Hand Exposure: Yes (GRANDPARENTS SMOKED); Do You Dip or Chew Tobacco: No; Hx Alcohol Use: Yes (hx social use/none since mar 2024) Hx Substance Use: No Preferred Language: Tajik Communication Ability: Effective Visual Impairment: No Limitations Special Officer Required: No Beliefs That Will Affect Care: None marital status: marital status details: Vincent (31) [phone] Current Living Situation: Spouse and Family Current Living Situation Comment: 2 daughters, 16,14 yo and 2 sons 2,4 yo current occupational status: unemployed 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 Cooperative. Skin is warm, slightly moist. Hands are tremulous HEENT: Atraumatic, normocephalic. Mucous membranes dry. Vision and hearing grossly intact Pulm: CTAB A&P. -wheezes, -rales, -rhonchi. Symmetrical chest rise. No increased work of breathing. No respiratory distress. Cardiac: Regular, tachycardic. Radial pulses intact and symmetrical. Abdominal: Nontender, nondistended, soft. BS present. Results & Data Results & Data Vital Signs (Past 12 Hours) Vital Signs Temp Pulse Resp BP Pulse Ox O2 Del Method O2 Flow Rate 07/05/24 16:05 122 H 07/05/24 14:30 140/96 07/05/24 14:30 140/96 07/05/24 14:30 140/96 07/05/24 14:30 140/96 07/05/24 14:30 106 H 17 98 07/05/24 14:06 115 H 16 99 07/05/24 14:00 133/108 H 07/05/24 13:57 116 H 17 99 07/05/24 13:33 117 H 22 98 07/05/24 13:30 131/99 07/05/24 13:30 131/99 07/05/24 13:30 131/99 07/05/24 13:30 131/99 07/05/24 13:21 122 H 14 97 07/05/24 13:00 123/94 07/05/24 13:00 123/94 07/05/24 13:00 123/94 07/05/24 13:00 106 H 18 97 07/05/24 12:45 107 H 16 97 07/05/24 12:30 127/98 07/05/24 12:21 112 H 15 97 07/05/24 12:17 96 Room Air 0 07/05/24 12:15 115 H 11 L 100 07/05/24 12:06 126 H 07/05/24 12:00 123/93 07/05/24 11:42 122 H 18 98 07/05/24 11:39 117 H 19 98 07/05/24 11:30 128/93 07/05/24 11:24 115 H 17 100 07/05/24 11:00 122/92 07/05/24 11:00 122/92 07/05/24 11:00 114 H 97 07/05/24 09:51 37 C 125 H 28 H 173/115 H 98 Room Air PG Care Time/CCT Total # of Minutes Spent Total Time Spent with Patient: Total time spent is greater than 50% in coordination of care (as documented) at patient's floor/unit and/or counseling patient: Coding Level of Care Code 18066 INT INP/OBS CARE 3/75MIN Diagnoses Alcohol abuse with withdrawal F10.139 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
[2024-07-05] MEDS: diazePAM 5 MG/ML 10ML VIAL IV STA (19:10)
[2024-07-05] MEDS: PLASMA-LYTE A 1,000 ML IV ONE (19:10)
[2024-07-05] MEDS: METOPROLOL SUCC 25MG EXT REL TAB PO SCH (21:59)
[2024-07-05] MEDS: SPIRONOLACTONE 25 MG TAB PO SCH (22:00)
[2024-07-05] MEDS: QUEtiapine FUMARATE 25 MG TABLET PO SCH (22:00)
[2024-07-06 04:18] LABS: Basophils # (auto) 0.01 K/uL (0.00-0.20); Basophils % (auto) 0.2 %; Eosinophils # (auto) 0.05 K/uL (0.00-0.50); Eosinophils % (auto) 1.1 %; Hemoglobin 11.7 g/dl (12.0-16.0); Lymphocytes # (auto) 2.14 K/uL (1.20-3.40); Lymphocytes % (auto) 48.2 %; Mean Corpuscular Hemoglobin 31.9 pg (25.0-34.0); Mean Corpuscular Hgb Conc 33.4 g/dL (32.0-36.0); Mean Corpuscular Volume 95.4 fL (80.0-100.0); Mean Platelet Volume 9.9 fL (9.4-12.4); Neutrophils # (auto) 1.84 K/uL (1.40-6.50); Neutrophils % (auto) 41.5 %; Platelet Count 204 K/uL (130-400); RDW Coefficient of Variation 12.9 % (11.5-14.5); Red Blood Count 3.67 M/uL (4.20-5.40); White Blood Count 4.44 K/ul (4.8-10.8)
[2024-07-06 04:49] LABS: BUN Creatinine Ratio 16.9 (10-20); Calcium 8.4 mg/dl (8.6-10.3); Creatinine Clr Calc Pharmacy 89.4 ml/min; Potassium 4.7 mmol/L (3.5-5.1)
[2024-07-06] MEDS: LEVOTHYROXINE SODIUM 150 MCG TABLET PO SCH (06:41)
[2024-07-06] MEDS: PANTOprazole 40 MG TAB PO SCH (09:04)
[2024-07-06] MEDS: THIAMINE HCL 100 MG TAB PO SCH (09:05)
[2024-07-06] MEDS: FOLIC ACID 1 MG TAB PO SCH (09:05)
--- NOTE | 2024-07-06 11:56 | Hospitalist Progress Note ---
Date of Service July 06, 2024 Assessment & Plan (1) Alcohol abuse with withdrawal: Plan: Alcohol withdrawal, detox request Patient drinking 1/5 of vodka every other day periodic alcohol for periods and then binge drinking for a week or so. Blood alcohol level 90.3 on admission Upon my evaluation today, 07/06, patient still very tremulous and still actively withdrawing Continue CIWA protocol Seizure precautions, no prior history of seizure Continue PPI Case management consulted. Patient has been accepted to [facility] (however, she would prefer to go home because she has 3 kids) Consider naltrexone on discharge for pharmacologic assisted sobriety Thiamine/folic acid repletion daily Hypothyroidism S/p surgical removal of her thyroid due to reported thyroiditis. Continue Synthroid 150 mcg daily OCD/anxiety Continue clomipramine, Seroquel. Clonazepam held while patient is on Valium/Ativan assess. 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 Do not hold for risk of beta-evelyn withdrawal DVT prophylaxis: SCDs Diet: Regular Disposition: PCU CODE STATUS: Full code Continue to monitor, still withdrawing. Not medically stable foe discharge (2) Hypothyroidism: (3) History of thyroidectomy: (4) Anxiety disorder: (5) OCD (obsessive compulsive disorder): Admission and Anticipated Discharge Date Admission Date: July 05, 2024 Subjective patient seen and examined, her mom by the bedside, still actively withdrawing Review of Systems Review of Systems: All systems reviewed are negative, apart from the ones contained in the history. Physical Exam Physical Exam: The patient is awake, alert and oriented 3, well developed and well nourished, normocephalic and atraumatic, lying in bed and in no acute distress. HEENT--PERRL, EOMI, mucous membranes and oropharynx mildly dry Neck--supple. No JVD. No bruits. Thyroid normal, trachea midline, no adenopathy. Heart--normal S1 and S2. No murmurs, rubs or gallops. Lungs--clear bilaterally, no respiratory distress, no accessory muscle use. Abdomen--normal bowel sounds and soft. Extremities--no cyanosis or clubbing. No edema. Dermatologic--normal skin turgor, normal color, no abnormal lymph nodes, no rash. Neurologic--cranial nerves II through XII grossly intact. tremors Rheumatologic--normal range of motion. Psychiatric--normal affect. Results & Data Results & Data Vital Signs (Past 12 Hours) Vital Signs Temp Pulse Pulse Resp BP BP Pulse Ox 07/06/24 10:53 69 19 127/92 100 07/06/24 07:18 75 07/06/24 06:43 98.4 F 106 H 20 123/84 100 07/06/24 06:28 77 14 112/82 07/06/24 03:41 75 17 157/90 H 98 07/06/24 02:51 78 16 157/90 H 96 07/06/24 00:57 76 22 148/99 H 98 07/06/24 00:00 126/92 O2 Del Method 07/06/24 10:53 Room Air 07/06/24 07:18 07/06/24 06:43 Room Air 07/06/24 06:28 07/06/24 03:41 Room Air 07/06/24 02:51 Room Air 07/06/24 00:57 Room Air 07/06/24 00:00 PG Care Time/CCT Total # of Minutes Spent Total Time Spent with Patient: Total time spent is greater than 50% in coordination of care (as documented) at patient's floor/unit and/or counseling patient: Coding Level of Care Code 85371 SUB INP/OBS CARE 2/35MIN Diagnoses Alcohol abuse with withdrawal F10.139 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
--- NOTE | 2024-07-06 12:11 | Discharge Summary ---
Date of Service July 06, 2024 Admission HPI Per Admitting Provider Last drink was midnight 07/04 into 05/04 Typically will binge drink several days in a row, then not drink for a week or so. Last ETOH free period >5 days 1-2 weeks ago Drinks vodka. Fifth of liquor lasts ~2 days. NO beer or wine. NO history of seizures. Has been through withdrawal before with sweating, shaking, tachycardia. Last episode of withdrawal was March. Has been hospitalized for withdrawal in [facility] in the ICU. No bloody/black BMs or history of bleeding No ingestions MedHx: - Hypothyroidism - OCD - Anxiety Prescription meds: - clompiramine 100mg HS, 25mg AM - Clonazepam 0.5mg up to TID, typically takes 1 tablet at night - synthroid 150mcg daily 2/2 surgical removal of thryoid after episode of thyroiditis - protonix - Metoprolol for anxiety and palpitations. Did not take today - Spironolactone for skin issues 50mg BID - Seroquel for sleep - Gabapentin 300mg HS for restless legs - No longer really takes baby aspirin, took temporarily because she was very nervous about blood clots post COVID Medical History: Reviewed Medications: Reviewed. NKMA. Surgical History: Reviewed Family history: Reviewed Allergies: Reviewed Social History: No tobacco use. No recreational drug. Code Status: Full Admission Exam (Per Admitting) Constitutional The patient is awake, alert and oriented 3, well developed and well nourished, normocephalic and atraumatic, lying in bed and in no acute distress. HEENT--PERRL, EOMI, mucous membranes and oropharynx mildly dry Neck--supple. No JVD. No bruits. Thyroid normal, trachea midline, no adenopathy. Heart--normal S1 and S2. No murmurs, rubs or gallops. Lungs--clear bilaterally, no respiratory distress, no accessory muscle use. Abdomen--normal bowel sounds and soft. Extremities--no cyanosis or clubbing. No edema. Dermatologic--normal skin turgor, normal color, no abnormal lymph nodes, no rash. Neurologic--cranial nerves II through XII grossly intact. tremors Rheumatologic--normal range of motion. Psychiatric--normal affect. Discharge Data Consultations 07/05/24 17:25 ED Decision to Admit Stat Hospital Course (1) Alcohol abuse with withdrawal: Alcohol withdrawal, detox request Patient drinking 1/5 of vodka every other day periodic alcohol for periods and then binge drinking for a week or so. Blood alcohol level 90.3 on admission Upon my evaluation today, 07/06, patient still very tremulous and still actively withdrawing Continue CIWA protocol Seizure precautions, no prior history of seizure Continue PPI Case management consulted. - Patient has been accepted at alcohol detox facility Hypothyroidism S/p surgical removal of her thyroid due to reported thyroiditis. Continue Synthroid 150 mcg daily OCD/anxiety Continue clomipramine, Seroquel. Clonazepam held while patient is on Valium/Ativan assess. 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
[2024-07-06 15:45] VITALS: BP 141/106; PULSE 106; RESP 18; TEMP 98.7; O2SAT 96
== END 2024-07-06 14:06 | disposition alcohol treatment (31) | DRG 897 ==
LOC: ED 09:44 → SUATTDRO 17:59 → EDINP 17:59